=== PATIENT | female | born 1950 | race Caucasian/White ===

== ENCOUNTER 2017-03-16 11:37 | Observation (INO) | payer MEDICARE, BC ==
--- NOTE | 2017-03-16 11:46 | EDM.PDOC ---
ED HPI GENERAL MEDICAL PROBLEM - General Chief Complaint: Cardiovascular Problem Stated Complaint: CAME FROM ACLR Time Seen by Provider: 03/16/17 11:41 Source of Information: Reports: Patient, Old Records, Provider (Essence SHOEMAKER), RN, RN Notes Reviewed History Limitations: Reports: No Limitations - History of Present Illness INITIAL COMMENTS - FREE TEXT/NARRATIVE: Sent to ER from [facility] by Essence SHOEMAKER with report that pt was seen in clinic to establish care today because of Dr. Comer's chcf. Pt was incidentally found to be in A-fib w/RVR w/rate in 150s. Also found to have Mag. of 1.0. Pt has Hx of chronic A-fib but is usually rate controlled. Essence states that pt is a known alcoholic, but denies the severity of her drinking. Also known Hx of A-fib on anticoagulation tx and diltiazem. Hx of chronic hypomagnesemia on oral Mg+. Given the clinic exam/lab findings today, pt's compliance with med. tx is questionable. Pt states that she does not feel her A-fib and cannot tell when it is rapid. She admits to some lightheadedness, and exertional SOB. She has lower ext. edema but states that it is chronic and stable. She denies chest pain, dyspnea at rest, or orthopnea. Onset: Unknown/Unsure Location: Reports: Generalized Severity: Severe Improves with: Reports: None Worsens with: Reports: None Associated Symptoms: Reports: No Other Symptoms - Related Data Allergies Allergy/AdvReac Type Severity Reaction Status Date / Time azithromycin [From Zithromax] Allergy Unknown [facility] Verified 01/23/14 22:05 ciprofloxacin Allergy Unknown UNKNOWN Verified 01/23/14 22:05 Home Meds: Home Meds Aspirin [Dago Chewable Aspirin] 81 mg PO DAILY 11/07/13 [History] Levothyroxine 88 mcg PO DAILY 11/07/13 [History] Acetaminophen [Tylenol] 650 mg PO Q4H PRN #30 tablet 11/13/13 [Rx] Potassium Chloride [Klor-Con 10] 10 meq PO BRK #10 tab.er 11/13/13 [Rx] Amoxicillin/Potassium Clav [Augmentin 500-125 Tablet] 1 tab PO BID 03/16/17 [ History] Atenolol 100 mg PO DAILY 03/16/17 [History] Diltiazem HCl [Cartia Xt] 1 cap PO DAILY 03/16/17 [History] Flecainide Acetate 100 mg PO DAILY 03/16/17 [History] Magnesium Oxide 500 mg PO TID 03/16/17 [History] Metoprolol Succinate [Toprol XL] 1 tab PO DAILY 03/16/17 [History] Rivaroxaban [Xarelto] 20 mg PO DAILY 03/16/17 [History] Past Medical History Cardiovascular History: Reports: Afib, Hypertension, SOB on Exertion Gastrointestinal History: Reports: GERD Psychiatric History: Reports: Addiction (alcohol) Endocrine/Metabolic History: Reports: Hypothyroidism, Other (See Below) ( hypomagnesemia) - Past Surgical History HEENT Surgical History: Reports: Adenoidectomy, Tonsillectomy Cardiovascular Surgical History: Reports: Other (See Below) (Percut. lunchroom monitor) GI Surgical History: Reports: Colonoscopy (w/polyp removal) Social & Family History - Family History Family Medical History: Noncontributory - Tobacco Use Smoking Status *Q: Never Smoker Second Hand Smoke Exposure: No - Alcohol Use Alcohol Use History: Yes Days Per Week of Alcohol Use: 7 Number of Drinks Per Day: 6 Total Drinks Per Week: 42 Alcohol Use Frequency: Daily - Recreational Drug Use Recreational Drug Use: No - Living Situation & Occupation Living situation: Reports: , with Spouse Occupation: Retired ED ROS GENERAL - Review of Systems Review Of Systems: ROS reveals no pertinent complaints other than HPI. ED EXAM, GENERAL - Physical Exam Exam: See Below Exam Limited By: No Limitations General Appearance: Alert, No Apparent Distress, Obese, Other (chronically ill appearing) Eye Exam: Bilateral Eye: Normal Inspection Ears: Normal External Exam, Hearing Grossly Normal Nose: Normal Inspection, Normal Mucosa, No Blood Throat/Mouth: Normal Inspection, Normal Lips, Normal Teeth, Normal Gums, Normal Oropharynx, Normal Voice, No Airway Compromise Head: Atraumatic, Normocephalic Neck: Normal Inspection, Supple, Non-Tender, Full Range of Motion Respiratory/Chest: No Respiratory Distress, Lungs Clear, Normal Breath Sounds, No Accessory Muscle Use, Chest Non-Tender Cardiovascular: No JVD, Tachycardia, Irregularly Irregular GI/Abdominal: Normal Bowel Sounds, Soft, Non-Tender, No Distention, No Abnormal Bruit (Female) Exam: Deferred Rectal (Female) Exam: Deferred Back Exam: Normal Inspection Extremities: Normal Range of Motion, Non-Tender, Normal Capillary Refill, Pedal Edema (B/L lower ext. edema to knees R>L, chronic/stable per pt.) Neurological: Alert, Oriented, CN II-XII Intact, Normal Cognition, No Motor/ Sensory Deficits Psychiatric: Normal Affect, Normal Mood Skin Exam: Warm, Dry, Intact, Normal Color, No Rash EKG INTERPRETATION EKG Date: 03/16/17 Time: 11:59 Rhythm: A-Fib Rate (Beats/Min): 141 [place]: RAD-Right [place] Deviation P-Wave: Absent QRS: Normal ST-T: Normal QT: Normal Comparison: No Change EKG Interpretation Comments: No acute ischemic changes. Course - Vital Signs Last Recorded V/S: Last Vital Signs Temp 36.9 C 03/16/17 11:40 Pulse 110 H 03/16/17 12:13 Resp 18 03/16/17 11:40 BP 138/68 03/16/17 12:13 Pulse Ox 98 03/16/17 11:40 - Orders/Labs/Meds Orders: Active Orders 24 hr Category Date Time Status EKG 12 Lead [EKG Documentation Completion] [RC] STAT Care 03/16/17 11:50 Active Peripheral IV Care [RC] . DIRECTED Care 03/16/17 11:51 Active Chest 1V Frontal [CR] Stat Exams 03/16/17 11:50 Taken CBC WITH AUTO DIFF [HEME] Stat Lab 03/16/17 11:46 Ordered COMPREHENSIVE METABOLIC PN,CMP [CHEM] Stat Lab 03/16/17 11:46 Ordered DRUG SCREEN URINE BIORAD [URCHEM] Stat Lab 03/16/17 11:46 Uncollected DRUG SCREEN URINE BIORAD [URCHEM] Stat Lab 03/16/17 11:51 Uncollected UA W/MICROSCOPIC [URIN] Stat Lab 03/16/17 11:51 Uncollected Diltiazem [Cardizem] 100 mg Med 03/16/17 12:00 Active Sodium Chloride 0.9% [Normal Saline] 100 ml IV TITRATE Magnesium Sulfate/Water [Magnesium Sulfate 4 GM in Med 03/16/17 12:33 Active Water 100 ML] 4 gm Premix Bag 1 bag IV ONETIME Sodium Chloride 0.9% [Saline Flush] Med 03/16/17 11:48 Active 10 ml FLUSH ASDIRECTED PRN Peripheral IV Insertion Adult [OM.PC] Stat Oth 03/16/17 11:49 Ordered Medication Orders Diltiazem HCl 100 mg/ Sodium (Chloride) 100 mls @ 10 mls/hr IV TITRATE ROSEMARY; 10 MG/HR PRN Reason: Protocol Last Admin: 03/16/17 12:13 Dose: 10 mg/hr, 10 mls/hr Magnesium Sulfate 4 gm/ Premix 100 mls @ 200 mls/hr IV ONETIME ONE Stop: 03/16/17 13:02 Sodium Chloride (Saline Flush) 10 ml FLUSH ASDIRECTED PRN PRN Reason: Keep Vein Open Last Admin: 03/16/17 11:46 Dose: 10 ml Labs: Laboratory Tests 03/16/17 03/16/17 03/16/17 Range/Units 12:00 12:00 12:00 WBC 4.8 L (5.0-10.0) 10^3/uL RBC 3.77 L (4.2-5.4) 10^6/uL Hgb 12.6 (12.0-16.0) g/dL Hct 36.5 L (37.0-47.0) % MCV 96.8 D (80-100) fL MCH 33.4 (27.0-34.0) pg MCHC 34.5 (33.0-35.0) g/dL Plt Count 184 D (150-450) 10^3/uL Neut % (Auto) 69.8 (42.2-75.2) % Lymph % (Auto) 17.0 L (20.5-50.1) % [place] % (Auto) 11.4 H (2-8) % Eos % (Auto) 1.2 (1.0-3.0) % Baso % (Auto) 0.6 (0.0-1.0) % Sodium 137 (135-145) mmol/L Potassium 3.3 L (3.6-5.0) mmol/L Chloride 98 L (101-111) mmol/L Carbon Dioxide 26.0 (21.0-31.0) mmol/L Anion Gap 16.3 BUN 8 (7-18) mg/dL Creatinine 0.7 (0.6-1.3) mg/dL Est Cr Clr Drug Dosing 82.62 mL/min Estimated GFR (MDRD) > 60 BUN/Creatinine Ratio 11.42 Glucose 103 (74-105) mg/dL Calcium 9.3 (8.4-10.2) mg/dl Magnesium 1.1 L (1.8-2.5) mg/dL Total Bilirubin 1.9 H (0.2-1.0) mg/dL GGT 139 H (7-64) IU/L AST 54 H (10-42) IU/L ALT 18 (10-60) IU/L Alkaline Phosphatase 148 H (42-121) IU/L Troponin I 0.03 H* (0.00-0.02) ng/ml B-Natriuretic Peptide 325 H (0-100) pg/ml Total Protein 7.8 (6.7-8.2) g/dl Albumin 4.2 (3.2-5.5) g/dl Globulin 3.6 Albumin/Globulin Ratio 1.17 Ethyl Alcohol < 5 mg/dL Meds: Medications Generic Name Dose Route Start Last Admin Trade Name Freq PRN Reason Stop Dose Admin Diltiazem HCl 100 mg/ Sodium 100 mls @ 10 mls/hr 03/16/17 12:00 03/16/17 12: 13 Chloride IV 10 mg/hr TITRATE ROSEMARY 10 mls/hr Protocol Administration 10 MG/HR Magnesium Sulfate 4 gm/ Premix 100 mls @ 200 mls/hr 03/16/17 12:33 IV 03/16/17 13:02 ONETIME ONE Sodium Chloride 10 ml 03/16/17 11:48 03/16/17 11:46 Saline Flush FLUSH 10 ml ASDIRECTED PRN Administration Keep Vein Open Discontinued Medications Generic Name Dose Route Start Last Admin Trade Name Freq PRN Reason Stop Dose Admin Diltiazem HCl 20 mg 03/16/17 11:48 03/16/17 11:56 Diltiazem IVPUSH 03/16/17 11:49 20 mg ONETIME ONE Administration - Radiology Interpretation Free Text/Narrative:: AP CXR: no acute infiltrates, no acute process; see Rad. report. Departure - Departure Time of Disposition: 12:41 (admitted to Dr. Haley) Disposition: Admitted As Inpatient 66 Condition: Serious Clinical Impression: Atrial fibrillation with rapid ventricular response, Hypomagnesemia, Hypokalemia, Alcohol dependence Forms: ED Department Discharge - My Orders Last 24 Hours: My Active Orders 03/16/17 11:46 CBC WITH AUTO DIFF [HEME] Stat COMPREHENSIVE METABOLIC PN,CMP [CHEM] Stat DRUG SCREEN URINE BIORAD [URCHEM] Stat 03/16/17 11:48 Sodium Chloride 0.9% [Saline Flush] 10 ml FLUSH ASDIRECTED PRN 03/16/17 11:49 Peripheral IV Insertion Adult [OM.PC] Stat 03/16/17 11:50 EKG 12 Lead [EKG Documentation Completion] [RC] STAT Chest 1V Frontal [CR] Stat 03/16/17 11:51 Peripheral IV Care [RC] . DIRECTED DRUG SCREEN URINE BIORAD [URCHEM] Stat UA W/MICROSCOPIC [URIN] Stat 03/16/17 12:00 Diltiazem [Cardizem] 100 mg Sodium Chloride 0.9% [Normal Saline] 100 ml IV TITRATE 03/16/17 12:33 Magnesium Sulfate/Water [Magnesium Sulfate 4 GM in Water 100 ML] 4 gm Premix Bag 1 bag IV ONETIME - Assessment/Plan Last 24 Hours: My Active Orders 03/16/17 11:46 CBC WITH AUTO DIFF [HEME] Stat COMPREHENSIVE METABOLIC PN,CMP [CHEM] Stat DRUG SCREEN URINE BIORAD [URCHEM] Stat 03/16/17 11:48 Sodium Chloride 0.9% [Saline Flush] 10 ml FLUSH ASDIRECTED PRN 03/16/17 11:49 Peripheral IV Insertion Adult [OM.PC] Stat 03/16/17 11:50 EKG 12 Lead [EKG Documentation Completion] [RC] STAT Chest 1V Frontal [CR] Stat 03/16/17 11:51 Peripheral IV Care [RC] . DIRECTED DRUG SCREEN URINE BIORAD [URCHEM] Stat UA W/MICROSCOPIC [URIN] Stat 03/16/17 12:00 Diltiazem [Cardizem] 100 mg Sodium Chloride 0.9% [Normal Saline] 100 ml IV TITRATE 03/16/17 12:33 Magnesium Sulfate/Water [Magnesium Sulfate 4 GM in Water 100 ML] 4 gm Premix Bag 1 bag IV ONETIME
[2017-03-16] MEDS ORDERED: Sodium Chloride 0.9% 10 ML Syringe FLUSH PRN ×2 (11:48→13:34)
[2017-03-16] MEDS ORDERED: Diltiazem 25 MG/5 ML SDV IVPUSH ONE (11:48)
[2017-03-16] MEDS ORDERED: Diltiazem 100 MG in Sodium Chloride 0.9% 100 ML IV SCH (12:00)
[2017-03-16 12:29] LABS: ANION GAP 16.3; CHLORIDE,CL 98 mmol/L (101-111); SODIUM,NA 137 mmol/L (135-145)
[2017-03-16] MEDS ORDERED: Magnesium Sulfate/Water 4 GM in Premix Bag 1 BAG IV ONE (12:33)
--- NOTE | 2017-03-16 12:58 | CR ---
Clinical history: 66-year-old "lightheaded" female with atrial fibrillation. Interpretation: Upright AP portable chest film confirms large cardiac silhouette without current sign s of cephalization vascular flow, alveolar edema or dependent pleural fluid accumulation. Fine platelike atelectasis right lung base but no new lung mass, hilar lymphadenopathy or focal lobar pneumonia identified in the interval since 07 November 2013 comparison portable chest film. Atheromatous calcifications arch of the ectatic dorsal aorta. (Reasonable inspiratory effort this obe se female) No lobar collapse. No pneumothorax. CONCLUSION: Large heart. No evidence of acute cardiovascular decompensation, new mass or lobar pneumo gentry.
[2017-03-16] MEDS ORDERED: Zolpidem 5 MG Tab PO PRN (13:34)
[2017-03-16] MEDS ORDERED: Acetaminophen 325 MG Tab PO PRN (13:34)
--- NOTE | 2017-03-16 13:54 | PCM.HP ---
H&P History of Present Illness - General Date of Service: 03/16/17 Admit Problem/Dx: Admission Diagnosis/Problem Admission Diagnosis/Problem Afib, Atrial fibrillation Source of Information: Patient - History of Present Illness Initial Comments - Free Text/Narative: The patient is a 66-year-old lady with a history of atrial fibrillation. The patient went to establish new primary care physician when she was noted to have tachycardia. She has had no definite symptoms. This, maybe slight lightheadedness recently. No associated chest pain, shortness of breath, fever or chills. She denies taking excessive coffeine. She drinks wine with meals and "alcohol free beer". - Related Data Allergies/Adverse Reactions: Allergies Allergy/AdvReac Type Severity Reaction Status Date / Time azithromycin [From Zithromax] Allergy Unknown [place] Verified 01/23/14 22:05 ciprofloxacin Allergy Unknown UNKNOWN Verified 01/23/14 22:05 Home Medications: Home Meds Levothyroxine 88 mcg PO DAILY 11/07/13 [History] Potassium Chloride [Klor-Con 10] 10 meq PO BRK #10 tab.er 11/13/13 [Rx] Amoxicillin/Potassium Clav [Augmentin 500-125 Tablet] 1 tab PO BID 03/16/17 [ History] Diltiazem HCl [Cartia Xt] 1 cap PO DAILY 03/16/17 [History] Flecainide Acetate 100 mg PO DAILY 03/16/17 [History] Magnesium Oxide 500 mg PO TID 03/16/17 [History] Metoprolol Succinate [Toprol XL] 1 tab PO DAILY 03/16/17 [History] Rivaroxaban [Xarelto] 20 mg PO DAILY 03/16/17 [History] Past Medical History Cardiovascular History: Reports: Afib, Hypertension, SOB on Exertion Gastrointestinal History: Reports: GERD Psychiatric History: Reports: Addiction (alcohol) Endocrine/Metabolic History: Reports: Hypothyroidism, Other (See Below) ( hypomagnesemia) - Past Surgical History HEENT Surgical History: Reports: Adenoidectomy, Tonsillectomy Cardiovascular Surgical History: Reports: Other (See Below) (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) GI Surgical History: Reports: Colonoscopy (w/polyp removal) Social & Family History - Family History Family Medical History: Noncontributory - Tobacco Use Smoking Status *Q: Never Smoker Second Hand Smoke Exposure: No - Alcohol Use Days Per Week of Alcohol Use: 7 Number of Drinks Per Day: 6 Total Drinks Per Week: 42 - Recreational Drug Use Recreational Drug Use: No - Living Situation & Occupation Living situation: Reports: , with Spouse Occupation: Retired H&P Review of Systems - Review of Systems: Review Of Systems: See Below General: Denies: Fever Pulmonary: Denies: Shortness of Breath Cardiovascular: Reports: Edema. Denies: Chest Pain Psychiatric: Denies: Confusion Exam - Exam Exam: See Below - Vital Signs Vital Signs: Last Vital Signs Temp 36.9 C 03/16/17 11:40 Pulse 110 H 03/16/17 12:13 Resp 18 03/16/17 11:40 BP 138/68 03/16/17 12:13 Pulse Ox 98 03/16/17 11:40 Weight: 99.337 kg - Exam Quality Assessment: No: Supplemental Oxygen General: Alert, Oriented Neck: Supple Lungs: Clear to Auscultation, Normal Respiratory Effort Cardiovascular: Irregular Rhythm, Tachycardia GI/Abdominal Exam: Normal Bowel Sounds, Soft, Non-Tender Extremities: Pedal Edema Skin: Warm, Dry Neuro Extensive - Mental Status: Alert, Oriented x3, Normal Mood/Affect - Patient Data Lab Results Last 24 hrs: Laboratory Results - last 24 hr 03/16/17 03/16/17 Range/Units 12:43 12:43 Urine Color Yellow (YELLOW) Urine Appearance Cloudy (CLEAR) Urine pH 6.5 (5.0-9.0) Ur Specific [place] 1.015 (1.005-1.030) Urine Protein 100 H (NEGATIVE) Urine Glucose (UA) Negative (NEGATIVE) Urine Ketones Negative (NEGATIVE) Urine Occult Blood Small H (NEGATIVE) Urine Nitrite Negative (NEGATIVE) Urine Bilirubin Small H (NEGATIVE) Urine Urobilinogen 2.0 H (0.2-1.0) mg/dL Ur Leukocyte Esterase Large H (NEGATIVE) Urine RBC 10-20 H /HPF Urine WBC >100 H (0-5/HPF) /HPF Ur Epithelial Cells Many H /HPF Amorphous Sediment Few (0/HPF) /HPF Urine Bacteria Moderate H (0-FEW/HPF) /HPF Urine Mucus Few H /LPF Urine Opiates Screen Negative (NEGATIVE) Ur Oxycodone Screen Negative (NEGATIVE) Urine Methadone Screen Negative (NEGATIVE) Ur Barbiturates Screen Negative (NEGATIVE) U Tricyclic Antidepress Negative (NEGATIVE) Ur Phencyclidine Scrn Negative (NEGATIVE) Ur Amphetamine Screen Negative (NEGATIVE) U Methamphetamines Scrn Negative (NEGATIVE) Urine MDMA Screen Negative (NEGATIVE) U Benzodiazepines Scrn Negative (NEGATIVE) Urine Cocaine Screen Negative (NEGATIVE) U Marijuana (THC) Screen Negative (NEGATIVE) Result Diagrams: 03/16/17 12:00 03/16/17 12:00 EKG INTERPRETATION Rhythm: A-Fib (With rapid ventricular rate) *Q Meaningful Use (ADM) - VTE *Q VTE Criteria *Q: - Stroke *Q Stroke Criteria *Q: - AMI *Q AMI Criteria *Q: - Problem List (1) Alcohol dependence SNOMED Code(s): 22425447 ICD Code: F10.20 - ALCOHOL DEPENDENCE, UNCOMPLICATED Status: Acute Current Visit: Yes (2) Atrial fibrillation with rapid ventricular response SNOMED Code(s): 423335009473971 ICD Code: I48.91 - UNSPECIFIED ATRIAL FIBRILLATION Status: Acute Current Visit: Yes (3) Hypomagnesemia SNOMED Code(s): 383731356 ICD Code: E83.42 - HYPOMAGNESEMIA Status: Acute Current Visit: Yes Problem List Initiated/Reviewed/Updated: Yes Orders Last 24hrs: Active Orders 24 hr Category Date Time Status Patient Status [ADT] Routine ADT 03/16/17 13:34 Ordered Antiembolic Devices [RC] PER UNIT ROUTINE Care 03/16/17 13:37 Ordered Oxygen Therapy [RC] PRN Care 03/16/17 13:34 Ordered Telemetry Monitoring [Cardiac Monitoring] [RC] . Care 03/16/17 13:32 Ordered DIRECTED Up With Assistance [RC] ASDIRECTED Care 03/16/17 13:34 Ordered VTE/DVT Education [RC] PER UNIT ROUTINE Care 03/16/17 13:34 Ordered Vital Signs [RC] Q4H Care 03/16/17 13:34 Ordered Heart Healthy Diet [DIET] Diet 03/16/17 Dinner Ordered BASIC METABOLIC PANEL,BMP [CHEM] AM Lab 03/17/17 05:15 Ordered CBC WITH AUTO DIFF [HEME] AM Lab 03/17/17 05:15 Ordered MAGNESIUM [CHEM] AM Lab 03/17/17 05:11 Ordered PHOSPHORUS [CHEM] AM Lab 03/17/17 05:11 Ordered TROPONIN I [CHEM] Routine Lab 03/16/17 18:00 Ordered Acetaminophen [Tylenol] Med 03/16/17 13:34 Ordered 650 mg PO Q4H PRN Amoxicillin/Clavulanate K [Augmentin 500 MG\\125 MG] Med 03/16/17 21:00 Ordered 1 tab PO BID Diltiazem [Cardizem CD] Med 03/17/17 09:00 Ordered 360 mg PO DAILY Flecainide Acetate [Flecainide Acetate] Med 03/17/17 09:00 Ordered 100 mg PO DAILY Folic Acid Med 03/16/17 13:45 Ordered 1 mg PO DAILY Levothyroxine Med 03/17/17 09:00 Ordered 88 mcg PO DAILY Magnesium Oxide Med 03/16/17 14:00 Ordered 500 mg PO TID Metoprolol Succinate [Toprol XL] Med 03/17/17 09:00 Ordered 1 tab PO DAILY Multivitamins,Therapeutic [Thera] Med 03/16/17 21:00 Ordered 1 each PO BEDTIME Potassium Chloride [Klor-Con 10] Med 03/17/17 08:00 Ordered 10 meq PO BRK Rivaroxaban [Xarelto] Med 03/17/17 09:00 Ordered 20 mg PO DAILY Sodium Chloride 0.9% [Saline Flush] Med 03/16/17 13:34 Ordered 10 ml FLUSH ASDIRECTED PRN Thiamine [Vitamin B-1] Med 03/16/17 21:00 Ordered 100 mg PO BEDTIME Zolpidem [Ambien] Med 03/16/17 13:34 Ordered 5 mg PO BEDTIME PRN Antiembolic Hose [OM.PC] Per Unit Routine Oth 03/16/17 13:36 Ordered Saline Lock Insert [OM.PC] Routine Oth 03/16/17 13:34 Ordered Resuscitation Status Routine Resus Stat 03/16/17 13:34 Ordered Medication Orders Acetaminophen (Tylenol) 650 mg PO Q4H PRN PRN Reason: Pain (Mild 1-3)/fever Amoxicillin/Clavulanate Potassium (Augmentin 500 Mg\\125 Mg) 1 tab PO BIDMEALS ROSEMARY Diltiazem HCl (Cardizem Cd) 360 mg PO DAILY ROSEMARY Folic Acid (Folic Acid) 1 mg PO DAILY ROSEMARY Diltiazem HCl 100 mg/ Sodium (Chloride) 100 mls @ 10 mls/hr IV TITRATE ROSEMARY; 10 MG/HR PRN Reason: Protocol Last Admin: 03/16/17 12:13 Dose: 10 mg/hr, 10 mls/hr Levothyroxine Sodium (Synthroid) 88 mcg PO DAILY@0600 [facility] Magnesium Oxide (Magnesium Oxide) 500 mg PO TID ROSEMARY Metoprolol Succinate (Toprol Xl) 100 mg PO DAILY [facility] Multivitamins (Thera) 1 each PO BEDTIME ROSEMARY Non-Formulary Medication (Flecainide Acetate [Flecainide Acetate]) 100 mg PO DAILY [facility] Potassium Chloride (Klor-Con 10) 10 meq PO BRK ROSEMARY Rivaroxaban (Xarelto) 20 mg PO DAILY [facility] Sodium Chloride (Saline Flush) 10 ml FLUSH ASDIRECTED PRN PRN Reason: Keep Vein Open Last Admin: 03/16/17 11:46 Dose: 10 ml Sodium Chloride (Saline Flush) 10 ml FLUSH ASDIRECTED PRN PRN Reason: Keep Vein Open Thiamine HCl (Vitamin B-1) 100 mg PO BEDTIME ROSEMARY Zolpidem Tartrate (Ambien) 5 mg PO BEDTIME PRN PRN Reason: Sleep Assessment/Plan Comment:: Rapid atrial fibrillation Admitted to telemetry, start Cardizem drip to control heart rate Continue metoprolol, fleccainide Increase Cardizem dose to 240 mg daily Check TSH, continue levothyroxine Hypomagnesemia Was given IV magnesium in the emergency room, recheck in the morning Continue anticoagulation with Xarelto History of alcohol use Give thiamine, folate, multivitamin Chronic Knee infection Continue chronic antibiotic therapy with Augmentin
[2017-03-16] MEDS: Diltiazem 240 MG Cap.CD PO SCH (16:01)
[2017-03-16] MEDS: Metoprolol Succinate 50 MG Tab.ER PO SCH (16:01)
[2017-03-16] MEDS: Folic Acid 1 MG Tab PO SCH (16:01)
[2017-03-16] MEDS: Amoxicillin/Clavulanate K 500-125 MG Tab PO SCH (17:41)
[2017-03-16] MEDS: Potassium Chloride 10 MEQ Tab.ER PO SCH (17:41)
[2017-03-16] MEDS ORDERED: Levothyroxine 88 MCG Tab PO SCH (21:00)
[2017-03-16] MEDS ORDERED: Multivitamins,Therapeutic Tab PO SCH (21:00)
[2017-03-16] MEDS ORDERED: Thiamine 100 MG Tab PO SCH (21:00)
[2017-03-16] MEDS ORDERED: Rivaroxaban 10 MG Tab PO SCH (21:00)
[2017-03-17 07:06] LABS: ANION GAP 15.2; CHLORIDE,CL 98 mmol/L (101-111); SODIUM,NA 136 mmol/L (135-145)
[2017-03-17 07:32] VITALS: BP 110/65
[2017-03-17] MEDS ORDERED: Metoprolol Succinate 50 MG Tab.ER PO SCH (09:00)
[2017-03-17] MEDS ORDERED: Diltiazem 240 MG Cap.CD PO SCH ×2 (09:00)
[2017-03-17] MEDS ORDERED: FLECAINIDE ACETATE 100 MG PO SCH (09:00)
[2017-03-17] MEDS: Diltiazem 240 MG Cap.CD PO SCH (09:12)
[2017-03-17] MEDS: Metoprolol Succinate 50 MG Tab.ER PO SCH (09:13)
[2017-03-17] MEDS: Potassium Chloride 10 MEQ Tab.ER PO SCH (09:13)
[2017-03-17] MEDS: Folic Acid 1 MG Tab PO SCH (09:13)
[2017-03-17] MEDS: Amoxicillin/Clavulanate K 500-125 MG Tab PO SCH (09:14)
[2017-03-17] MEDS ORDERED: Diltiazem 180 MG Cap.CD PO SCH (09:17)
--- NOTE | 2017-03-17 09:29 | PCM.DCSUM1 ---
Discharge Summary - Hospital Course Free Text/Narrative:: The patient was admitted with rapid atrial fibrillation She did not take her morning medications when this was noted Rapid atrial fibrillation Admitted to telemetry, started Cardizem drip to control heart rate Continued metoprolol, Cardizem orally Her rate became controlled and Cardizem drip was stopped She remained in rate controlled atrial fibrillation TSH was normal, continue levothyroxine Will be discharged on her prior home medications Hypomagnesemia Was given IV magnesium in the emergency room, Continue oral supplement Continue anticoagulation with Xarelto History of alcohol use Given thiamine, folate, multivitamin Chronic Knee infection Continue chronic antibiotic therapy with Augmentin - Discharge Data Discharge Date: 03/17/17 Discharge Disposition: Home, Self-Care 01 Condition: Stable - Discharge Diagnosis/Problem(s) (1) Alcohol dependence SNOMED Code(s): 57464547 ICD Code: F10.20 - ALCOHOL DEPENDENCE, UNCOMPLICATED Status: Acute Current Visit: Yes (2) Atrial fibrillation with rapid ventricular response SNOMED Code(s): 542098353369638 ICD Code: I48.91 - UNSPECIFIED ATRIAL FIBRILLATION Status: Acute Current Visit: Yes (3) Hypomagnesemia SNOMED Code(s): 600591541 ICD Code: E83.42 - HYPOMAGNESEMIA Status: Acute Current Visit: Yes - Patient Instructions Diet: Heart Healthy Diet Activity: As Tolerated - Discharge Plan Prescriptions/Med Rec: Potassium Chloride [Klor-Con 10] 10 meq PO BRK #30 tab.er Home Medications: Home Meds Levothyroxine 88 mcg PO BEDTIME 11/07/13 [History] Amoxicillin/Potassium Clav [Augmentin 500-125 Tablet] 1 tab PO BID 03/16/17 [ History] Diltiazem HCl [Cartia Xt] 180 mg PO DAILY 03/16/17 [History] Magnesium Oxide 500 mg PO TID 03/16/17 [History] Metoprolol Succinate [Toprol XL] 100 mg PO DAILY 03/16/17 [History] Rivaroxaban [Xarelto] 20 mg PO BEDTIME 03/16/17 [History] Potassium Chloride [Klor-Con 10] 10 meq PO BRK #30 tab.er 03/17/17 [Rx] Patient Handouts: Muscle Cramps and Spasms, [id number], Potassium Salts tablets, extended-release tablets or capsules, Hypomagnesemia, Hypokalemia, Atrial Fibrillation, [id number] Referrals: PCP,None [Primary Care Provider] - (Lucille Bowers in 3 days) - General Info Date of Service: 03/17/17 Functional Status: Reports: Pain Controlled - Review of Systems General: Denies: Fever, Weakness Pulmonary: Denies: Shortness of Breath Cardiovascular: Denies: Chest Pain, Palpitations Gastrointestinal: Denies: Abdominal Pain - Patient Data Vitals - Most Recent: Last Vital Signs Temp 36.4 C 03/17/17 07:31 Pulse 67 03/17/17 09:13 Resp 20 03/17/17 07:31 BP 110/65 03/17/17 09:13 Pulse Ox 99 03/17/17 07:31 Weight - Most Recent: 99.246 kg I&O - Last 24 hours: Intake & Output 03/16/17 03/17/17 03/17/17 22:59 06:59 14:59 Intake Total 159 510 Output Total 200 100 Balance -41 410 Lab Results - Last 24 hrs: Laboratory Results - last 24 hr 03/16/17 03/17/17 03/17/17 Range/Units 18:02 05:50 05:50 WBC 4.0 L (5.0-10.0) 10^3/uL RBC 3.71 L (4.2-5.4) 10^6/uL Hgb 12.0 (12.0-16.0) g/dL Hct 37.1 (37.0-47.0) % MCV 100.0 D (80-100) fL MCH 32.3 (27.0-34.0) pg MCHC 32.3 L (33.0-35.0) g/dL Plt Count 176 (150-450) 10^3/uL Neut % (Auto) 61.2 (42.2-75.2) % Lymph % (Auto) 22.5 (20.5-50.1) % [place] % (Auto) 13.8 H (2-8) % Eos % (Auto) 1.5 (1.0-3.0) % Baso % (Auto) 1.0 (0.0-1.0) % Sodium 136 (135-145) mmol/L Potassium 4.2 (3.6-5.0) mmol/L Chloride 98 L (101-111) mmol/L Carbon Dioxide 27.0 (21.0-31.0) mmol/L Anion Gap 15.2 BUN 13 (7-18) mg/dL Creatinine 0.8 (0.6-1.3) mg/dL Est Cr Clr Drug Dosing 72.29 mL/min Estimated GFR (MDRD) > 60 Glucose 113 H (74-105) mg/dL Calcium 9.2 (8.4-10.2) mg/dl Phosphorus 4.6 (2.5-4.6) mg/dL Magnesium 1.9 (1.8-2.5) mg/dL Troponin I 0.03 H* (0.00-0.02) ng/ml TSH, Ultra Sensitive (0.45-5.33) uIu/mL 03/17/17 Range/Units 05:50 WBC (5.0-10.0) 10^3/uL RBC (4.2-5.4) 10^6/uL Hgb (12.0-16.0) g/dL Hct (37.0-47.0) % MCV (80-100) fL MCH (27.0-34.0) pg MCHC (33.0-35.0) g/dL Plt Count (150-450) 10^3/uL Neut % (Auto) (42.2-75.2) % Lymph % (Auto) (20.5-50.1) % [place] % (Auto) (2-8) % Eos % (Auto) (1.0-3.0) % Baso % (Auto) (0.0-1.0) % Sodium (135-145) mmol/L Potassium (3.6-5.0) mmol/L Chloride (101-111) mmol/L Carbon Dioxide (21.0-31.0) mmol/L Anion Gap BUN (7-18) mg/dL Creatinine (0.6-1.3) mg/dL Est Cr Clr Drug Dosing mL/min Estimated GFR (MDRD) Glucose (74-105) mg/dL Calcium (8.4-10.2) mg/dl Phosphorus (2.5-4.6) mg/dL Magnesium (1.8-2.5) mg/dL Troponin I (0.00-0.02) ng/ml TSH, Ultra Sensitive 4.45 (0.45-5.33) uIu/mL Med Orders - Current: Current Medications Acetaminophen (Tylenol) 650 mg PO Q4H PRN PRN Reason: Pain (Mild 1-3)/fever Amoxicillin/Clavulanate Potassium (Augmentin 500 Mg\125 Mg) 1 tab PO BIDMEALS COUNT INCLUDES THE [facility] Last Admin: 03/17/17 09:14 Dose: 1 tab Diltiazem HCl (Cardizem Cd) 180 mg PO DAILY COUNT INCLUDES THE [facility] Folic Acid (Folic Acid) 1 mg PO DAILY COUNT INCLUDES THE [facility] Last Admin: 03/17/17 09:13 Dose: 1 mg Levothyroxine Sodium (Synthroid) 88 mcg PO DAILY@2100 COUNT INCLUDES THE [facility] Last Admin: 03/16/17 21:10 Dose: 88 mcg Magnesium Oxide (Magnesium Oxide) 500 mg PO TID COUNT INCLUDES THE [facility] Last Admin: 03/17/17 09:13 Dose: 500 mg Metoprolol Succinate (Toprol Xl) 100 mg PO DAILY COUNT INCLUDES THE [facility] Last Admin: 03/17/17 09:13 Dose: 100 mg Multivitamins (Thera) 1 each PO BEDTIME COUNT INCLUDES THE [facility] Last Admin: 03/16/17 21:10 Dose: 1 each Potassium Chloride (Klor-Con 10) 10 meq PO BRK COUNT INCLUDES THE [facility] Last Admin: 03/17/17 09:13 Dose: 10 meq Rivaroxaban (Xarelto) 20 mg PO DAILY@2100 COUNT INCLUDES THE [facility] Last Admin: 03/16/17 21:10 Dose: 20 mg Sodium Chloride (Saline Flush) 10 ml FLUSH ASDIRECTED PRN PRN Reason: Keep Vein Open Last Admin: 03/16/17 11:46 Dose: 10 ml Sodium Chloride (Saline Flush) 10 ml FLUSH ASDIRECTED PRN PRN Reason: Keep Vein Open Thiamine HCl (Vitamin B-1) 100 mg PO BEDTIME COUNT INCLUDES THE [facility] Last Admin: 03/16/17 21:10 Dose: 100 mg Zolpidem Tartrate (Ambien) 5 mg PO BEDTIME PRN PRN Reason: Sleep Discontinued Medications Diltiazem HCl (Diltiazem) 20 mg IVPUSH ONETIME ONE Stop: 03/16/17 11:49 Last Admin: 03/16/17 11:56 Dose: 20 mg Diltiazem HCl (Cardizem Cd) 360 mg PO DAILY COUNT INCLUDES THE [facility] Diltiazem HCl (Cardizem Cd) 240 mg PO DAILY COUNT INCLUDES THE [facility] Diltiazem HCl (Cardizem Cd) 240 mg PO DAILY ROSEMARY Last Admin: 03/17/17 09:12 Dose: Not Given Diltiazem HCl 100 mg/ Sodium (Chloride) 100 mls @ 10 mls/hr IV TITRATE ROSEMARY; 10 MG/HR PRN Reason: Protocol Last Titration: 03/16/17 18:15 Dose: 0 mg/hr, 0 mls/hr Magnesium Sulfate 4 gm/ Premix 100 mls @ 200 mls/hr IV ONETIME ONE Stop: 03/16/17 13:02 Last Infusion: 03/16/17 20:10 Dose: 50 mls/hr Metoprolol Succinate (Toprol Xl) 100 mg PO DAILY ROSEMARY Non-Formulary Medication (Flecainide Acetate [Flecainide Acetate]) 100 mg PO DAILY ROSEMARY - Exam General: Reports: Alert, Oriented Neck: Reports: Supple Lungs: Reports: Clear to Auscultation, Normal Respiratory Effort Cardiovascular: Reports: Irregular Rhythm. Denies: Bradycardia, Tachycardia GI/Abdominal Exam: Normal Bowel Sounds, Soft, No Mass Extremities: Pedal Edema *Q Meaningful Use (DIS) - VTE *Q VTE Criteria *Q: - Stroke *Q Stroke Criteria *Q: - AMI *Q AMI Criteria *Q:
--- NOTE | 2017-03-22 10:53 | EKG ---
03/16/2017- EVA ARELLANO R - EKG per my reading shows atrial fibrillation with rapid ventricular rate at the rate of 140s. MODL /[id number]
== END 2017-03-17 11:05 | disposition home or self-care (01) ==
LOC: DL.ED 11:37 → DL.MS 12:42 → UNDOADMOB 12:42 → DL.MS 13:34
PROVIDERS: ADMIT Internal Medicine; ATTEND Internal Medicine
DX: I48.2 Chronic atrial fibrillation (principal); E83.42 Hypomagnesemia; F10.20 Alcohol dependence, uncomplicated; R06.02 Shortness of breath; I10 Essential (primary) hypertension; K21.9 Gastro-esophageal reflux disease without esophagitis; E03.9 Hypothyroidism, unspecified; L08.9 Local infection of the skin and subcutaneous tissue, unspecified; Z79.899 Other long term (current) drug therapy; Z79.01 Long term (current) use of anticoagulants; Z88.1 Allergy status to other antibiotic agents; Z90.89 Acquired absence of other organs; Z79.82 Long term (current) use of aspirin
CPT/HCPCS: 36415; 71045; 80048; 80053; 80305; 81001; 82977; 83735; 83880; 84100; 84443; 84484; 85025; 93005; 93010; 96365; 96366; 96368; 96376; 99217; 99218; 99285; A9270; G0378; G0480; J3475; J3490; J7050; 96375

== ENCOUNTER 2018-05-11 07:24 | Inpatient (IN) | payer MEDICARE, BC ==
[2018-05-11] MEDS ORDERED: Diltiazem 25 MG/5 ML SDV IVPUSH ONE (07:41)
--- NOTE | 2018-05-11 07:56 | EDM.PDOC ---
ED HPI GENERAL MEDICAL PROBLEM - General Chief Complaint: Cardiovascular Problem Stated Complaint: AMBULANCE Time Seen by Provider: 05/11/18 07:30 Source of Information: Reports: Patient, EMS, EMS Notes Reviewed, RN, RN Notes Reviewed History Limitations: Reports: No Limitations - History of Present Illness INITIAL COMMENTS - FREE TEXT/NARRATIVE: Pt to ER per [facility] with c/o A fib. She c/o tingling in arms, feeling of palpitations and SOB. Patient states she took her morning pills thinking it would help (Mg, K+, metoprolol). Denies being sick recently. Admits to SOB, nausea, chills, diarrhea for the past few days. Denies chest pain, vomiting, fever. Admits to a fib for quite some time, states her rate normally runs 110- 120. Onset: Today, Gradual - Related Data Allergies Allergy/AdvReac Type Severity Reaction Status Date / Time ciprofloxacin Allergy Severe Swollen Verified 05/11/18 08:56 Tongue azithromycin [From Zithromax] Allergy Intermediate [place] Verified 05/11/18 08: 56 Home Meds: Home Meds Levothyroxine 100 mcg PO BEDTIME 11/07/13 [History] Magnesium Oxide 500 mg PO BID 03/16/17 [History] Metoprolol Succinate [Toprol XL] 150 mg PO DAILY 03/16/17 [History] Rivaroxaban [Xarelto] 20 mg PO BEDTIME 03/16/17 [History] Amoxicillin/Potassium Clav [Amox-Clav 500-125 mg Tablet] 1 each PO BID 05/11/18 [History] Furosemide 40 mg PO DAILY 05/11/18 [History] Potassium Chloride [Klor-Con 10] 10 meq PO BID 05/11/18 [History] Past Medical History Cardiovascular History: Reports: Afib, Hypertension, SOB on Exertion Respiratory History: Reports: SOB Gastrointestinal History: Reports: GERD 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 Musculoskeletal History: Reports: Arthritis, Fracture, Osteoarthritis Neurological History: Reports: TIA Psychiatric History: Reports: Addiction Endocrine/Metabolic History: Reports: Hypothyroidism - Infectious Disease History Infectious Disease History: Reports: Chicken Pox, Measles, Shingles - Past Surgical History HEENT Surgical History: Reports: Adenoidectomy, Tonsillectomy Cardiovascular Surgical History: Reports: Other (See Below) GI Surgical History: Reports: Colonoscopy Female Surgical History: Reports: None Social & Family History - Family History Family Medical History: Noncontributory Musculoskeletal: Reports: Arthritis Endocrine/Metabolic: Reports: Diabetes, type II Oncologic: Reports: Breast - Tobacco Use Smoking Status *Q: Never Smoker Second Hand Smoke Exposure: No - Caffeine Use Caffeine Use: Reports: Coffee, Soda - Recreational Drug Use Recreational Drug Use: No - Living Situation & Occupation Living situation: Reports: , with Spouse Occupation: Retired ED ROS GENERAL - Review of Systems Review Of Systems: ROS reveals no pertinent complaints other than HPI. ED EXAM, GENERAL - Physical Exam Exam: See Below Exam Limited By: No Limitations General Appearance: Alert, WD/WN, No Apparent Distress Eye Exam: Bilateral Eye: EOMI, Normal Inspection Ears: Normal External Exam, Hearing Grossly Normal Nose: Normal Inspection Throat/Mouth: Normal Inspection, Normal Voice, No Airway Compromise Head: Atraumatic, Normocephalic Neck: Normal Inspection, Supple, Non-Tender, Full Range of Motion Respiratory/Chest: Other (lung sounds coarse throughout. ) Cardiovascular: Tachycardia, Irregularly Irregular Peripheral Pulses: 2+: Radial (L), Radial (R) GI/Abdominal: Normal Bowel Sounds, Soft, Non-Tender (Female) Exam: Deferred Rectal (Female) Exam: Deferred Back Exam: Normal Inspection, Full Range of Motion, NT Extremities: Normal Inspection, Normal Range of Motion, Non-Tender, Normal Capillary Refill Neurological: Alert, Oriented, CN II-XII Intact, Normal Cognition, No Motor/ Sensory Deficits Psychiatric: Normal Affect, Normal Mood Skin Exam: Warm, Dry, Intact, Normal Color, No Rash Lymphatic: No Adenopathy EKG INTERPRETATION EKG Date: 05/11/18 Time: 07:38 Rhythm: A-Fib Rate (Beats/Min): 131 Comparison: No Change Course - Vital Signs Last Recorded V/S: Last Vital Signs Temp 98.6 F 05/11/18 07:25 Pulse 147 H 05/11/18 07:25 Resp 18 05/11/18 07:25 BP 142/118 H 05/11/18 07:25 Pulse Ox 98 05/11/18 07:25 - Orders/Labs/Meds Orders: Active Orders 24 hr Category Date Time Status EKG Documentation Completion [RC] STAT Care 05/11/18 07:32 Active Chest 1V Frontal [CR] Stat Exams 05/11/18 07:33 Taken UA RFX PIPE AND CULT IF INDIC [URIN] Stat Lab 05/11/18 07:33 Ordered D5 1/2 NS w/ 20 mEq/L KCl 1,000 ml Med 05/11/18 08:45 Active IV ASDIRECTED Magnesium Sulfate/D5W [Magnesium 1 GM in D5W 100 ML] Med 05/11/18 08:34 Active 100 ml IV ONETIME Sodium Chloride 0.9% [Normal Saline] 1,000 ml Med 05/11/18 08:36 Active IV .BOLUS Medication Orders Potassium Chloride/Dextrose/Sod Cl (D5 1/2 Ns W/ 20 Meq/L Kcl) 1,000 mls @ 75 mls/hr IV ASDIRECTED ROSEMARY Magnesium Sulfate/Dextrose (Magnesium 1 Gm In D5w 100 Ml) 100 mls @ 100 mls/hr IV ONETIME ONE Stop: 05/11/18 09:33 Last Admin: 05/11/18 08:49 Dose: 100 mls/hr Sodium Chloride (Normal Saline) 1,000 mls @ 100 mls/hr IV .BOLUS ONE Stop: 05/11/18 18:35 Last Admin: 05/11/18 08:53 Dose: 100 mls/hr Labs: Laboratory Tests 05/11/18 05/11/18 05/11/18 Range/Units 07:52 07:52 07:52 WBC 3.3 L (5.0-10.0) 10^3/uL RBC 3.28 L (4.2-5.4) 10^6/uL Hgb 12.2 (12.0-16.0) g/dL Hct 34.5 L (37.0-47.0) % MCV 105.2 H D (80-100) fL MCH 37.2 H (27.0-34.0) pg MCHC 35.4 H (33.0-35.0) g/dL Plt Count 103 L (150-450) 10^3/uL Neut % (Auto) 69.0 (42.2-75.2) % Lymph % (Auto) 21.3 (20.5-50.1) % [place] % (Auto) 5.2 (2-8) % Eos % (Auto) 2.7 (1.0-3.0) % Baso % (Auto) 1.8 H (0.0-1.0) % Sodium 129 L (135-145) mmol/L Potassium 3.2 L (3.6-5.0) mmol/L Chloride 86 L D (101-111) mmol/L Carbon Dioxide 25.0 (21.0-31.0) mmol/L Anion Gap 21.2 BUN 6 L (7-18) mg/dL Creatinine 0.7 (0.6-1.3) mg/dL Est Cr Clr Drug Dosing 81.50 mL/min Estimated GFR (MDRD) > 60 BUN/Creatinine Ratio 8.57 Glucose 79 (74-105) mg/dL Calcium 8.7 (8.4-10.2) mg/dl Magnesium 1.2 L (1.8-2.5) mg/dL Total Bilirubin 2.6 H (0.2-1.0) mg/dL AST 156 H (10-42) IU/L ALT 38 (10-60) IU/L Alkaline Phosphatase 142 H (42-121) IU/L Troponin I 0.02 (0.00-0.02) ng/ml Total Protein 7.3 (6.7-8.2) g/dl Albumin 3.9 (3.2-5.5) g/dl Globulin 3.4 Albumin/Globulin Ratio 1.15 Meds: Medications Generic Name Dose Route Start Last Admin Trade Name Freq PRN Reason Stop Dose Admin Potassium Chloride/Dextrose/Sod Cl 1,000 mls @ 75 mls/hr 05/11/18 08:45 D5 1/2 Ns W/ 20 Meq/L Kcl IV ASDIRECTED ROSEMARY Magnesium Sulfate/Dextrose 100 mls @ 100 mls/hr 05/11/18 08:34 05/11/18 08:49 Magnesium 1 Gm In D5w 100 Ml IV 05/11/18 09:33 100 mls/hr ONETIME ONE Administration Sodium Chloride 1,000 mls @ 100 mls/hr 05/11/18 08:36 05/11/18 08:53 Normal Saline IV 05/11/18 18:35 100 mls/hr .BOLUS ONE Administration Discontinued Medications Generic Name Dose Route Start Last Admin Trade Name Freq PRN Reason Stop Dose Admin Diltiazem HCl 20 mg 05/11/18 07:41 05/11/18 07:57 Diltiazem IVPUSH 05/11/18 07:42 20 mg ONETIME ONE Administration - Radiology Interpretation Free Text/Narrative:: Chest xray: FINDINGS: Lungs: No acute lung consolidation or pulmonary edema. Pleural space: No pleural effusion or pneumothorax. Heart/Mediastinum: The heart is enlarged. The mediastinal contours are normal. Bones/joints: No acute osseous abnormality. IMPRESSION: Cardiomegaly. Thank you for allowing us to participate in the care of your patient. Dictated and Authenticated by: John Bliss MD 05/11/2018 8:22 AM Central Time ([place] & [place]) See rad report Departure - Departure Time of Disposition: 09:02 Disposition: Refer to Observation Condition: Fair Clinical Impression: Hypomagnesemia, Hypokalemia, Hyponatremia, Tachycardia Atrial fibrillation Qualifiers: Atrial fibrillation type: chronic Qualified Code(s): I48.2 - Chronic atrial fibrillation Forms: ED Department Discharge - My Orders Last 24 Hours: My Active Orders 05/11/18 07:32 EKG Documentation Completion [RC] STAT 05/11/18 07:33 Chest 1V Frontal [CR] Stat UA RFX PIPE AND CULT IF INDIC [URIN] Stat 05/11/18 08:34 Magnesium Sulfate/D5W [Magnesium 1 GM in D5W 100 ML] 100 ml IV ONETIME 05/11/18 08:36 Sodium Chloride 0.9% [Normal Saline] 1,000 ml IV .BOLUS 05/11/18 08:45 D5 1/2 NS w/ 20 mEq/L KCl 1,000 ml IV ASDIRECTED - Assessment/Plan Last 24 Hours: My Active Orders 05/11/18 07:32 EKG Documentation Completion [RC] STAT 05/11/18 07:33 Chest 1V Frontal [CR] Stat UA RFX PIPE AND CULT IF INDIC [URIN] Stat 05/11/18 08:34 Magnesium Sulfate/D5W [Magnesium 1 GM in D5W 100 ML] 100 ml IV ONETIME 05/11/18 08:36 Sodium Chloride 0.9% [Normal Saline] 1,000 ml IV .BOLUS 05/11/18 08:45 D5 1/2 NS w/ 20 mEq/L KCl 1,000 ml IV ASDIRECTED
[2018-05-11 08:18] LABS: ANION GAP 21.2; CHLORIDE,CL 86 mmol/L (101-111); SODIUM,NA 129 mmol/L (135-145)
[2018-05-11] MEDS ORDERED: Sodium Chloride 0.9% 1,000 ML IV ONE (08:36)
[2018-05-11] MEDS ORDERED: D5 1/2 NS w/ 20 mEq/L KCl 1,000 ML IV SCH (08:45)
[2018-05-11] MEDS ORDERED: Potassium Chloride 20 MEQ in Premix Bag 1 BAG IV ONE (09:58)
[2018-05-11] MEDS ORDERED: ONDANSETRON 4 MG PO PRN (10:53)
[2018-05-11] MEDS ORDERED: Acetaminophen 325 MG Tab PO PRN (11:00)
[2018-05-11] MEDS: NS + KCl 20mEq/L 1,000 ML IV SCH (11:15)
[2018-05-11] MEDS: Potassium Chloride 10 MEQ Tab.ER PO SCH ×2 (12:19→17:58)
--- NOTE | 2018-05-11 18:40 | HP ---
CHIEF COMPLAINT: Palpitations, dizziness, tingling, and numbness to the extremities. HISTORY OF PRESENTING ILLNESS: Mrs. Violeta Abdullahi is a 67-year-old female with medical history significant for hypertension; hyperlipidemia; paroxysmal atrial fibrillation, on chronic anticoagulation with Xarelto; history of hypothyroidism; gastroesophageal reflux disease; duodenitis; gastritis leading to GI bleed in the past; history of alcohol use, presented to the ER with complaints of having dizziness and paresthesias, and noted to have electrolyte imbalance including hyponatremia, severe hypokalemia, hypomagnesemia, requiring admission to the hospital. At this time, the patient claims that she was apparently normal at her baseline function until yesterday. This morning, when she woke up, she had this paresthesias in both extremities and also felt dizzy. She graded the dizziness as 3 to 4/10 in intensity, aggravated on ambulation, relieved with rest, not associated with any nausea or vomiting. Denies any chest pain. No shortness of breath. No abdominal pain. The patient complains of having palpitations earlier today. She denied any fevers or chills in the last few days. No cough with sputum in the last few days. The patient denied any history of chest pains on exertion, but has mild dyspnea on exertion and feels dizzy at times secondary to atrial fibrillation. Denied any hematemesis, hematochezia, or melenic stools recently. Normal bowel and bladder habits otherwise. REVIEW OF SYSTEMS: A complete review of system including skin, ear, nose, and throat, cardiovascular system, respiratory system, gastrointestinal system, genitourinary system, hematology, oncology, neurology, allergy, immunology, endocrinology, constitutional were all evaluated and were negative except for the above-said notes. PAST MEDICAL HISTORY: Significant for hypertension; hyperlipidemia; paroxysmal atrial fibrillation, on chronic anticoagulation; obesity; mitral insufficiency; hypothyroidism; gastroesophageal reflux disease; duodenitis; chronic antral gastritis; bronchitis; alcohol use. PAST SURGICAL HISTORY: Significant for upper endoscopy, total knee arthroplasty on the right side, tonsillectomy, adenoidectomy, polypectomy, loop recorder implant, endometrial biopsy, colonoscopy, transesophageal echocardiography. FAMILY HISTORY: Significant for breast cancer in her mother. Alzheimer disease in her father. Diabetes in her grandmother and grandfather. SOCIAL HISTORY: The patient denied any history of smoking tobacco, history of occasional alcohol intake. ALLERGIES: The patient is noted to have allergies to ciprofloxacin and Zithromax. HOME MEDICATIONS: 1. Ondansetron 4 mg every 4 hours as needed for nausea and vomiting. 2. Ibuprofen as needed for pain. 3. Xarelto 20 mg at bedtime. 4. Potassium chloride 10 mEq daily twice a day. 5. Toprol-XL 150 mg daily. 6. Magnesium oxide 500 mg twice a day. 7. Levothyroxine 100 mcg daily. 8. Lasix 40 mg daily and as needed. 9. Amoxicillin one tablet twice a day. PHYSICAL EXAMINATION: Vital Signs: Temperature of 98.6, pulse of 147, blood pressure 142/118, respiratory rate of 18, and saturating at 98% on room air. General Appearance: The patient is well oriented to time, place, and person. Follows commands spontaneously. Cardiovascular System: S1 and S2 heard with normal intensity. Regular heart rate. Respiratory System: Clear to auscultation bilaterally. No wheeze. No crepitations. Abdomen: Soft. Bowel sounds are positive. Nontender. No rigidity. Extremities: Mild edema in bilateral lower extremities. Neurology: No gross focal neurological deficits. LABORATORY DATA: WBC 3.3, hemoglobin 12.2, hematocrit 34.5, platelet counts 103. Sodium 129, potassium 3.2, chloride 86, bicarb 25, BUN 6, creatinine 0.7, magnesium 1.2, total bilirubin 2.6, AST 156, ALT 138, alkaline phosphatase 142. ASSESSMENT: 1. Acute hyponatremia. 2. Acute hypokalemia. 3. Acute hypomagnesemia. 4. Dizziness. 5. Atrial fibrillation. 6. Hypertension. 7. Hyperlipidemia. 8. History of duodenitis and gastritis. 9. Alcohol use. PLAN: 1. Acute hyponatremia, exact etiology is not clear, but the patient claims that she had some loose stools earlier, unsure this is hypovolemic hyponatremia. We will start her on IV normal saline. We will obtain serum osmolality, urine osmolality, and urine sodium and creatinine to see if the patient has any underlying syndrome of inappropriate antidiuretic hormone secretion like picture. We will keep her hydrated with IV fluids with normal saline and check sodium every 4 hourly. We will closely follow. 2. Hypokalemia. The patient noted a potassium of 3.2. We will mix potassium to the IV bag and also have her on oral potassium chloride. We will have her on 20 mEq three times a day and check a potassium later today and also a BMP in a.m. 3. Hypomagnesium. We will continue with oral supplement and also we will give 1 g of IV magnesium and recheck magnesium in a.m. 4. Dizziness. The patient was complaining of dizziness, this could be resulting from electrolyte imbalance, hyponatremia, and also from atrial fibrillation with rapid ventricular response. We will keep her hydrated with IV fluids. Avoid any hypotensive episodes. 5. Atrial fibrillation. The patient was noted to be in rapid ventricular response. On presentation to the ER, heart rate seems to be improving. We will have her on Telemetry Unit, and we will continue with Toprol-XL for now. Continue Xarelto for anticoagulation. 6. Deep venous thrombosis prophylaxis. She is currently on Xarelto. Continue the same. 7. Code status. The patient wants to be full code. Discussed with [facility], ER staff regarding the plan of care. Discussed with family members at bedside. Reviewed the labs and medications. Reviewed the old charts. [facility] /[id number]
[2018-05-11] MEDS: MAGNESIUM OXIDE 250 MG PO SCH (20:52)
[2018-05-11] MEDS ORDERED: Levothyroxine 100 MCG Tab **OWN MED PO SCH (21:00)
[2018-05-12] MEDS: NS + KCl 20mEq/L 1,000 ML IV SCH (00:49)
[2018-05-12 06:54] LABS: ANION GAP 16.9; CHLORIDE,CL 91 mmol/L (101-111); SODIUM,NA 132 mmol/L (135-145)
[2018-05-12] MEDS: Potassium Chloride 10 MEQ Tab.ER PO SCH ×3 (08:19→17:42)
[2018-05-12] MEDS: MAGNESIUM OXIDE 250 MG PO SCH (08:22)
[2018-05-12] MEDS ORDERED: METOPROLOL SUCCINATE 100 MG PO SCH (09:00)
[2018-05-12] MEDS ORDERED: Ondansetron 4 MG Tab.DIS PO PRN (12:00)
[2018-05-12] MEDS: Diltiazem 120 MG Cap.CD PO SCH (12:31)
[2018-05-12] MEDS: Rivaroxaban 10 MG Tab PO SCH (20:21)
[2018-05-12] MEDS: Sodium Chloride 0.9% 10 ML Syringe FLUSH PRN (20:22)
[2018-05-12] MEDS ORDERED: Levothyroxine 100 MCG Tab PO SCH (21:00)
[2018-05-13] MEDS: Diltiazem 120 MG Cap.CD PO SCH (08:57)
[2018-05-13] MEDS: Potassium Chloride 10 MEQ Tab.ER PO SCH ×3 (08:57→21:32)
[2018-05-13] MEDS ORDERED: Metoprolol Succinate 50 MG Tab.ER PO SCH (09:00)
[2018-05-13 13:05] LABS: ANION GAP 15.2; CHLORIDE,CL 94 mmol/L (101-111); SODIUM,NA 129 mmol/L (135-145)
[2018-05-13] MEDS: Amoxicillin/Clavulanate K 500-125 MG Tab PO SCH ×2 (14:32→21:32)
--- NOTE | 2018-05-13 14:43 | PN ---
DATE: 05/13/2018 SUBJECTIVE: Mrs. Violeta Abdullahi is a 67-year-old female with medical history significant for hypertension; hyperlipidemia; paroxysmal atrial fibrillation, on chronic anticoagulation with Xarelto; hypothyroidism; gastroesophageal reflux disease, admitted to the hospital with weakness, tiredness, and noted to have hyponatremia, severe hypokalemia, hypomagnesemia, atrial fibrillation with rapid ventricular response. For the last 24 hours, the patient closely monitored on Telemetry Unit. She continues to be in atrial fibrillation. We added Cardizem, after which her blood pressure dropped down to 90 systolic. She denies any chest pain. No shortness of breath. No abdominal pain. No nausea. No vomiting. No diarrhea. REVIEW OF SYSTEMS: Cardiovascular, respiratory, gastrointestinal, neurology, constitutional were all evaluated. PHYSICAL EXAMINATION: Vital Signs: Temperature of 97.7, pulse of 55, blood pressure of 95/59, respiratory rate of 18, and saturating at 100% on room air. General Appearance: The patient is well oriented to time, place, and person. Follows commands spontaneously. Cardiovascular System: S1 and S2 heard with normal intensity. Regular heart rate. Respiratory System: Clear to auscultation bilaterally. No wheeze. No crepitations. Abdomen: Soft. Bowel sounds positive. Nontender. No rigidity. Extremities: Mild edema in bilateral lower extremities. MEDICATIONS: Reviewed. 1. Continue with diltiazem 120 mg daily. 2. Decrease Toprol-XL to 100 mg daily. 3. Increase levothyroxine to 150 mcg daily. 4. Continue with potassium chloride 20 mEq three times a day. LABORATORY DATA: Sodium 129, potassium 4.2, chloride 94, bicarb 24, BUN 9, creatinine 0.6, glucose 90. ASSESSMENT: 1. Hyponatremia. 2. Hypokalemia, resolved. 3. Hypomagnesemia, improved. 4. Atrial fibrillation with rapid ventricular response. 5. Hypertension. 6. Hyperlipidemia. 7. Hypothyroidism. 8. Duodenitis. PLAN: 1. Hyponatremia. The patient continues to have low sodium. Her serum osmolality and urine osmolality were obtained, and suggestive of possible syndrome of inappropriate antidiuretic hormone secretion like picture. We will have her on fluid restriction. We will closely follow. 2. Hypokalemia. The patient is on potassium chloride and potassium is much improved. We will change it to twice a day potassium chloride supplement. 3. Hypomagnesium. We will recheck magnesium level in a.m. Continue with magnesium supplement. 4. Atrial fibrillation. The patient's heart rate seems to be much improved. We added Cardizem 120 mg daily, but her blood pressure trended down, so we will decrease the Toprol-XL to 100 mg daily. Continue with Cardizem CD at 120 and we will closely follow. Continue with Xarelto for anticoagulation. 5. Duodenitis. Continue with proton pump inhibitor. 6. Deep venous thrombosis prophylaxis. Continue with heparin for deep venous thrombosis prophylaxis. 7. Closely monitor Telemetry Unit. Discussed with family members regarding the plan of care. [facility] /[id number]
[2018-05-13] MEDS ORDERED: Levothyroxine 75 MCG Tab PO SCH (21:00)
[2018-05-13] MEDS: Rivaroxaban 10 MG Tab PO SCH (21:33)
[2018-05-13] MEDS: Sodium Chloride 0.9% 10 ML Syringe FLUSH PRN (21:35)
[2018-05-14 06:43] LABS: ANION GAP 14.3; CHLORIDE,CL 96 mmol/L (101-111); SODIUM,NA 129 mmol/L (135-145)
[2018-05-14] MEDS: Potassium Chloride 10 MEQ Tab.ER PO SCH (08:36)
[2018-05-14] MEDS: Amoxicillin/Clavulanate K 500-125 MG Tab PO SCH (08:36)
[2018-05-14 08:37] VITALS: BP 123/77
[2018-05-14] MEDS ORDERED: Metoprolol Succinate 50 MG Tab.ER PO SCH (09:00)
[2018-05-14] MEDS ORDERED: Diltiazem 120 MG Cap.CD PO SCH ×2 (09:00)
--- NOTE | 2018-05-14 09:13 | PN ---
DATE: 05/12/2018 SUBJECTIVE: Mrs. Violeta Abdullahi is a 67-year-old female with medical history significant for hypertension; hyperlipidemia; paroxysmal atrial fibrillation, on chronic anticoagulation with Xarelto; hypothyroidism; gastroesophageal reflux disease admitted to the hospital with complaints of increasing dizziness, weakness, tiredness and noted to have atrial fibrillation with rapid ventricular response along with hyponatremia, hypokalemia, and hypomagnesemia. For the last 24 hours, the patient was continued on IV normal saline with potassium chloride and replaced with potassium and magnesium. She continues to have rapid ventricular response with heart rate ranging between 100 to 120 on the telemetry, especially when she is exerting. She denies any ongoing chest pains. No shortness of breath. No abdominal pain. No nausea. No vomiting. No diarrhea. Her weakness seems to be improved after electrolyte replacement. REVIEW OF SYSTEMS: Cardiovascular, respiratory, gastrointestinal, neurology, constitutional were all evaluated. PHYSICAL EXAMINATION: Vital Signs: Temperature of 97.5, pulse of 114, blood pressure 107/79, respiratory rate of 18, and saturating at 99% on room air. General Appearance: The patient is well oriented to time, place, and person. Follows commands spontaneously. Cardiovascular System: S1, S2 heard with normal intensity. No gallops. Respiratory System: Clear to auscultation bilaterally. No wheeze. No crepitations. Abdomen: Soft. Bowel sounds positive. Nontender. No rigidity. Extremities: No edema bilateral lower extremities. MEDICATIONS: Reviewed. 1. Continue with Toprol-XL 150 mg daily. 2. Potassium chloride changed to 20 mEq 3 times a day. 3. Xarelto 20 mg at bedtime. 4. Added diltiazem 120 mg daily. 5. Magnesium oxide 500 mg twice a day. LABORATORY DATA: Reviewed. WBC 2.6, hemoglobin 10.8, hematocrit 31.6, and platelet count 97. Sodium 132, potassium 3.9, chloride 91, bicarb 28, BUN 10, creatinine 0.7, and glucose 84. Magnesium 1.5, phosphorus 3.5, and calcium 8.4. ASSESSMENT: 1. Atrial fibrillation with rapid ventricular response. 2. Dizziness. 3. Hypertension. 4. Hyperlipidemia. 5. Hyponatremia. 6. Hypokalemia. 7. Hypomagnesemia. 8. History of duodenitis and gastritis. PLAN: 1. Atrial fibrillation with rapid ventricular response. The patient is noted to have AFib with RVR. Her heart rate is in the range of 100 to 120. She is on maximal dose of metoprolol-XL at 150 mg daily. Her echocardiogram dated back to 2015 shows evidence of good ejection fraction of 55% to 60%. We will add low-dose Cardizem at 120 mg daily to better control of the heart rate. She will be continued on the Telemetry Unit. We will change her to inpatient at this time as we will need to further dose adjust the medication to optimize her heart rate and electrolytes. 2. Hyponatremia, seems to be improved with IV normal saline. She had serum osmolality and urine osmolality checked. We will discontinue the IV fluids for now. We will recheck a basic metabolic panel in a.m. 3. Hypomagnesemia. If the patient continues to have low magnesium at this time, we will replace with oral magnesium twice a day and we will recheck magnesium in a.m. We will give her 1 more dose of IV magnesium today. 4. Hypokalemia, improved. The patient's potassium is back to normal at 3.9, we will increase the potassium to twice a day and recheck a BMP in a.m. 5. Hypertension. The patient's blood pressure seems to be in acceptable range. She is currently on metoprolol, added Cardizem for better heart rate control. We will closely monitor her to avoid any hypotensive episodes. 6. Chronic anticoagulation indicated secondary to atrial fibrillation. She is currently on Xarelto, continue the same. 7. Hypothyroidism. The patient has been on levothyroxine. Her TSH is greater than 48.6, we will increase the levothyroxine dose to 150 mcg and she would benefit from rechecking a TSH in next 6 weeks of time. 8. The patient will be changed to inpatient service as we would need to further dose adjust the medication to optimize her heart rate and electrolytes. [facility] /[id number]
--- NOTE | 2018-05-15 10:05 | DISCH ---
DATE OF SERVICE: 05/14/2018 ADMITTING DIAGNOSES: 1. Acute hyponatremia. 2. Acute hypokalemia. 3. Acute hypomagnesemia. 4. Atrial fibrillation with rapid ventricular response. 5. Increasing weakness and tiredness. 6. Dizziness. DISCHARGE DIAGNOSES: 1. Acute hyponatremia, most probably from syndrome of inappropriate antidiuretic hormone. The patient recommended for fluid restriction and also from hypothyroidism. 2. Acute hypokalemia, resolved. 3. Acute hypomagnesemia, resolved. 4. Atrial fibrillation with rapid ventricular response, rate controlled after adding diltiazem. 5. Hypertension, improved. 6. Hypothyroidism with elevated thyroid-stimulating hormone level, requiring dose adjustment of her levothyroxine. HISTORY OF PRESENTING ILLNESS: Mrs. Kaylen Mcdaniel is a 67-year-old female with a medical history significant for hypertension, hyperlipidemia, paroxysmal atrial fibrillation, chronic anticoagulation with Xarelto, history of hypothyroidism, gastroesophageal reflux disease, duodenitis, gastritis, admitted to the hospital with complaints of increasing weakness and dizziness and noted to have severe hypokalemia, hypomagnesemia, and atrial fibrillation with rapid ventricular response. The patient was admitted to the Telemetry Unit. She received IV fluids, after which her sodium got improved, but her serum osmolality and urine osmolality suggested possible SIADH and she was noted to have hypothyroidism and her TSH was elevated up to 48 on this admission. We increased her levothyroxine to 150 mcg. She continued to be in atrial fibrillation with a rapid ventricular response. We added diltiazem 120 mg daily after which her heart rate seems to be improved. She was noted to have low blood pressure after adding the diltiazem, so we decreased the metoprolol XL to 100 mg daily. She responded well to the treatment. We replaced her with oral potassium chloride after which her potassium was within normal limits. Her magnesium was within normal limits. She was explained about changes in her medications. She is advised to follow with her primary care physician in next one week of time. She is discharged home in stable condition. DISCHARGE MEDICATIONS: Include: 1. Augmentin 1 tablet twice a day. 2. Diltiazem 120 mg daily. 3. Lasix 40 mg daily and as needed. 4. Ibuprofen 1 tablet at bedtime as needed. 5. Levothyroxine 150 mcg daily. 6. Magnesium oxide 500 mg twice a day. 7. Metoprolol XL 100 mg daily. 8. Ondansetron 4 mg every 4 hours as needed for nausea. 9. Potassium chloride 10 mEq twice a day. 10.Rivaroxaban 20 mg oral at bedtime. PHYSICAL EXAMINATION ON THE DAY OF DISCHARGE: Vital Signs: Temperature of 98.4, pulse of 80, blood pressure of 123/77, respiratory rate of 20, saturating at 99% on room air. General Appearance: The patient is well oriented to time, place, and person. Follows commands spontaneously. Cardiovascular System: S1 and S2 heard with normal intensity. No gallops. Respiratory System: Clear to auscultation bilaterally. No wheeze. No crepitations. Abdomen: Soft. Bowel sounds positive. Nontender. No rigidity. Extremities: Mild edema in bilateral lower extremities. Neurologic: No gross focal neurological deficit. CONDITION ON ADMISSION: Poor. CONDITION ON DISCHARGE: Stable. DISPOSITION: Discharged to home. ACTIVITY: As tolerated. DIET: Cardiac healthy diet with fluid restriction to 1.5 L a day. FOLLOWUP: Follow up with primary care physician in next one week of time. TIME SPENT: I spent over 35 minutes of time in evaluating and treating this patient and planning discharge. [facility] /[id number]
== END 2018-05-14 12:10 | disposition home or self-care (01) | DRG 645 ==
LOC: DL.ED 07:24 → UNDOADMOB 09:26 → DL.MS 09:26 → OBSVTOIN 05-12 11:46
PROVIDERS: ADMIT Internal Medicine; ATTEND Internal Medicine
DX: E22.2 Syndrome of inappropriate secretion of antidiuretic hormone (principal); E87.6 Hypokalemia; E83.42 Hypomagnesemia; R42 Dizziness and giddiness; E03.9 Hypothyroidism, unspecified; I10 Essential (primary) hypertension; I48.0 Paroxysmal atrial fibrillation; K21.9 Gastro-esophageal reflux disease without esophagitis; E66.9 Obesity, unspecified; I34.0 Nonrheumatic mitral (valve) insufficiency; M19.90 Unspecified osteoarthritis, unspecified site; K29.80 Duodenitis without bleeding; E78.5 Hyperlipidemia, unspecified; Z79.01 Long term (current) use of anticoagulants; Z96.651 Presence of right artificial knee joint; Z88.1 Allergy status to other antibiotic agents; Z86.73 Personal history of transient ischemic attack (TIA), and cerebral infarction without residual deficits
CPT/HCPCS: 36415; 71045; 80048; 80053; 81001; 83735; 83930; 83935; 84100; 84132; 84300; 84443; 84484; 85025; 85027; 87086; 87088; 87186; 93005; 96365; 96366; 96367; 96375; 99285-25; A9270-GY; G0378; J3475; J3480; J3490; J7030

== ENCOUNTER 2018-08-02 10:18 | Observation (INO) | payer MEDICARE, BC ==
[2018-08-02] MEDS ORDERED: Sodium Chloride 0.9% 10 ML Syringe FLUSH PRN (10:29)
[2018-08-02 11:12] LABS: CHLORIDE,CL 75 mmol/L (101-111); SODIUM,NA 127 mmol/L (135-145)
[2018-08-02 11:29] LABS: ANION GAP 26.5
[2018-08-02] MEDS ORDERED: D5 1/2 NS w/ 20 mEq/L KCl 1,000 ML IV SCH (12:00)
[2018-08-02] MEDS ORDERED: Magnesium Sulfate/Water 2 GM in Premix Bag 1 BAG IV ONE (13:15)
--- NOTE | 2018-08-02 13:27 | PCM.HP ---
H&P History of Present Illness - General Date of Service: 08/02/18 Admit Problem/Dx: Admission Diagnosis/Problem Admission Diagnosis/Problem Hyponatremia Source of Information: Patient, Provider - History of Present Illness Initial Comments - Free Text/Narative: Patient is a 67 y.o female with medical history significant for afib on chronic anticoagulation with rivaroxiban, CHF, hypothyroidism, and electrolyte imbalance who presented to the ED with complaints of nausea/vomiting, and weakness. Patient reports that she had constant, non-radiating, 5/5, left chest pressure that started last night. Reports pain resolved with taking her morning medications. Reports she had an episode of NBNB emesis this morning. Also reports right flank pain that she thinks was related to her gallstones, for which she has an appointment on August 07. She denies fevers but reports chills. She denies diarrhea, constipation, melena, hematochezia. Reports chronic lower extremity edema. Denies falls. - Related Data Allergies/Adverse Reactions: Allergies Allergy/AdvReac Type Severity Reaction Status Date / Time ciprofloxacin Allergy Severe Swollen Verified 08/02/18 12:27 Tongue azithromycin [From Zithromax] Allergy Intermediate [place] Verified 08/02/18 12: 27 Home Medications: Home Meds Magnesium Oxide 500 mg PO BID 03/16/17 [History] Rivaroxaban [Xarelto] 20 mg PO BEDTIME 03/16/17 [History] Amoxicillin/Potassium Clav [Amox-Clav 500-125 mg Tablet] 1 each PO BID 05/11/18 [History] Furosemide 40 mg PO DAILY 05/11/18 [History] Potassium Chloride [Klor-Con 10] 10 meq PO BID 05/11/18 [History] Diltiazem HCl [Cartia Xt] 120 mg PO DAILY 08/02/18 [History] Levothyroxine 150 mcg PO BEDTIME 08/02/18 [History] Levothyroxine 150 mcg PO QAM 08/02/18 [History] Metoprolol Succinate [Toprol XL 50mg] 50 mg PO BID 08/02/18 [History] Past Medical History HEENT History: Reports: None Cardiovascular History: Reports: Heart Failure, Hypertension, SOB on Exertion Respiratory History: Reports: Sleep Apnea, SOB Gastrointestinal History: Reports: Cholelithiasis, GERD Genitourinary History: Reports: None [employer] History: Reports: Musculoskeletal History: Reports: Arthritis, Osteoarthritis Neurological History: Reports: Seizure, TIA Psychiatric History: Reports: Addiction Endocrine/Metabolic History: Reports: Hypothyroidism - Infectious Disease History Infectious Disease History: Reports: Chicken Pox, Measles 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 - Past Surgical History HEENT Surgical History: Reports: Adenoidectomy, Tonsillectomy Cardiovascular Surgical History: Reports: Other (See Below) Other Cardiovascular Surgeries/Procedures: leaky valve Respiratory Surgical History: Reports: None GI Surgical History: Reports: Colonoscopy Female Surgical History: Reports: None Endocrine Surgical History: Reports: None Neurological Surgical History: Reports: None Musculoskeletal Surgical History: Reports: Knee Replacement, Other (See Below) Other Musculoskeletal Surgeries/Procedures:: right with chronic staph infection Social & Family History - Family History Family Medical History: Noncontributory Musculoskeletal: Reports: Arthritis Endocrine/Metabolic: Reports: Diabetes, type II Oncologic: Reports: Breast - Tobacco Use Smoking Status *Q: Never Smoker Second Hand Smoke Exposure: No - Caffeine Use Caffeine Use: Reports: Coffee - Recreational Drug Use Recreational Drug Use: No - Living Situation & Occupation Living situation: Reports: , with Spouse Occupation: Retired H&P Review of Systems - Review of Systems: Review Of Systems: ROS reveals no pertinent complaints other than HPI. Exam - Exam Exam: See Below - Vital Signs Vital Signs: Last Vital Signs Temp 98.9 F 08/02/18 10:25 Pulse 103 H 08/02/18 10:25 Resp 18 08/02/18 10:25 BP 130/61 08/02/18 10:25 Pulse Ox 97 08/02/18 10:25 Weight: 186 lb 4.8 oz - Exam Physical Exam Comments:: General: Alert and oriented to place, time and person Head: atraumatic and normocephalic. Eyes: PERRLA, EOMI, anicteric, Ear, Nose and Throat: No gross abnormality found Neck: Supple Respiratory/Chest: CTAB, no wheezes, crackles, rales, or rhonci; Good air entry bilaterally. No increased work of breathing CVS: Tachycardic, IRIR, no murmur, rub, or gallop, peripheral pulses palpable. Gastrointestinal/Abd: Soft, non-distended, non-tender. Normal bowel sounds. Skin: No acute rashes noted. Neuro: Grossly non-focal. No cranial nerve abnormality. Moves all extremities. Psych: Alert and oriented to place time and person. No hallucinations or delusions noted. Musculoskeletal: No abnormality noted. Ext: Bilateral ankle edema. No ulcers, no tenderness, no size differences, - Patient Data Lab Results Last 24 hrs: Laboratory Results - last 24 hr 08/02/18 08/02/18 08/02/18 Range/Units 10:43 10:43 10:43 WBC 5.3 (5.0-10.0) 10^3/uL RBC 3.21 L (4.2-5.4) 10^6/uL Hgb 11.7 L (12.0-16.0) g/dL Hct 33.3 L (37.0-47.0) % MCV 103.7 H D (80-100) fL MCH 36.4 H (27.0-34.0) pg MCHC 35.1 H (33.0-35.0) g/dL Plt Count 180 D (150-450) 10^3/uL Neut % (Auto) 80.6 H (42.2-75.2) % Lymph % (Auto) 10.6 L (20.5-50.1) % Addison % (Auto) 8.0 (2-8) % Eos % (Auto) 0.2 L (1.0-3.0) % Baso % (Auto) 0.6 (0.0-1.0) % PT 12.2 H (9.0-12.0) SEC INR 1.2 (0.9-1.2) Sodium 127 L (135-145) mmol/L Potassium 2.5 L D (3.6-5.0) mmol/L Chloride 75 L D (101-111) mmol/L Carbon Dioxide 28.0 (21.0-31.0) mmol/L Anion Gap 26.5 BUN 10 (7-18) mg/dL Creatinine 0.8 (0.6-1.3) mg/dL Est Cr Clr Drug Dosing 71.31 mL/min Estimated GFR (MDRD) > 60 BUN/Creatinine Ratio 12.50 Glucose 104 (74-105) mg/dL Calcium 8.9 (8.4-10.2) mg/dl Magnesium (1.8-2.5) mg/dL Total Bilirubin 3.3 H (0.2-1.0) mg/dL AST 159 H (10-42) IU/L ALT 41 (10-60) IU/L Alkaline Phosphatase 144 H (42-121) IU/L Troponin I 0.02 (0.00-0.02) ng/ml Total Protein 8.1 (6.7-8.2) g/dl Albumin 4.5 (3.2-5.5) g/dl Globulin 3.6 Albumin/Globulin Ratio 1.25 Amylase (28-100) U/L Lipase (22-51) U/L 08/02/18 08/02/18 Range/Units 10:43 10:43 WBC (5.0-10.0) 10^3/uL RBC (4.2-5.4) 10^6/uL Hgb (12.0-16.0) g/dL Hct (37.0-47.0) % MCV (80-100) fL MCH (27.0-34.0) pg MCHC (33.0-35.0) g/dL Plt Count (150-450) 10^3/uL Neut % (Auto) (42.2-75.2) % Lymph % (Auto) (20.5-50.1) % Addison % (Auto) (2-8) % Eos % (Auto) (1.0-3.0) % Baso % (Auto) (0.0-1.0) % PT (9.0-12.0) SEC INR (0.9-1.2) Sodium (135-145) mmol/L Potassium (3.6-5.0) mmol/L Chloride (101-111) mmol/L Carbon Dioxide (21.0-31.0) mmol/L Anion Gap BUN (7-18) mg/dL Creatinine (0.6-1.3) mg/dL Est Cr Clr Drug Dosing mL/min Estimated GFR (MDRD) BUN/Creatinine Ratio Glucose (74-105) mg/dL Calcium (8.4-10.2) mg/dl Magnesium 1.4 L (1.8-2.5) mg/dL Total Bilirubin (0.2-1.0) mg/dL AST (10-42) IU/L ALT (10-60) IU/L Alkaline Phosphatase (42-121) IU/L Troponin I (0.00-0.02) ng/ml Total Protein (6.7-8.2) g/dl Albumin (3.2-5.5) g/dl Globulin Albumin/Globulin Ratio Amylase 44 (28-100) U/L Lipase 19 L (22-51) U/L Result Diagrams: 08/02/18 10:43 08/02/18 10:43 EKG INTERPRETATION EKG Date: 08/02/18 Rhythm: A-Fib Rate (Beats/Min): 126 Plain: RAD-Right Plain Deviation QRS: Normal EKG Interpretation Comments: A fib with RVR, Rate of 126. Right axis deviation. Diffuse T wave inversions. QTc of 516. - Problem List (1) Atrial fibrillation with rapid ventricular response SNOMED Code(s): 351822227019850 ICD Code: I48.91 - UNSPECIFIED ATRIAL FIBRILLATION Status: Acute Current Visit: No (2) Hypokalemia SNOMED Code(s): 50722810 ICD Code: E87.6 - HYPOKALEMIA Status: Acute Current Visit: No (3) Hypomagnesemia SNOMED Code(s): 470646939 ICD Code: E83.42 - HYPOMAGNESEMIA Status: Acute Current Visit: No (4) Hyponatremia SNOMED Code(s): 49726090 ICD Code: E87.1 - HYPO-OSMOLALITY AND HYPONATREMIA Status: Acute Current Visit: No (5) Nausea & vomiting SNOMED Code(s): 47952169 ICD Code: R11.2 - NAUSEA WITH VOMITING, UNSPECIFIED Status: Acute Current Visit: No Qualifiers: Vomiting type: unspecified Vomiting Intractability: non-intractable Qualified Code(s): R11.2 - Nausea with vomiting, unspecified Problem List Initiated/Reviewed/Updated: Yes Orders Last 24hrs: Active Orders 24 hr Category Date Time Status Patient Status [ADT] Routine ADT 08/02/18 13:06 Active EKG Documentation Completion [RC] STAT Care 08/02/18 10:29 Active Oxygen Therapy [RC] PRN Care 08/02/18 13:06 Active Peripheral IV Care [RC] . DIRECTED Care 08/02/18 10:29 Active Telemetry Monitoring [Cardiac Monitoring] [RC] . Care 08/02/18 13:13 Ordered DIRECTED VTE/DVT Education [RC] PER UNIT ROUTINE Care 08/02/18 13:06 Active Vital Signs [RC] Q4H Care 08/02/18 13:06 Active Echo Comp wo Cont [US] Routine Exams 08/02/18 13:16 Ordered CREATININE,URINE RAND [URCHEM] Routine Lab 08/02/18 13:16 Ordered SODIUM,URINE RANDOM [URCHEM] Routine Lab 08/02/18 13:16 Ordered TROPONIN I [CHEM] Routine Lab 08/02/18 14:00 Ordered TSH ULTRASENSITIVE [CHEM] Routine Lab 08/02/18 13:16 Ordered UA RFX PIPE AND CULT IF INDIC [URIN] Stat Lab 08/02/18 10:29 Ordered D5 1/2 NS w/ 20 mEq/L KCl 1,000 ml Med 08/02/18 12:00 Active IV ASDIRECTED Diltiazem [Cardizem CD] Med 08/03/18 09:00 Ordered 120 mg PO DAILY Levothyroxine Med 08/02/18 21:00 Ordered 150 mcg PO BEDTIME Levothyroxine Med 08/03/18 09:00 Ordered 150 mcg PO QAM Magnesium Oxide Med 08/02/18 21:00 Ordered 500 mg PO BID Magnesium Sulfate/Water [Magnesium Sulfate in Water Med 08/02/18 13:15 Ordered Premix] 2 gm Premix Bag 1 bag IV ONETIME Metoprolol Succinate [Toprol XL] Med 08/02/18 21:00 Ordered 50 mg PO BID Potassium Chloride [KCl 10 MEQ in Water 100 ML] 10 meq Med 08/02/18 13:15 Ordered Premix Bag 1 bag IV Q1H Potassium Chloride [Klor-Con 10] Med 08/02/18 13:20 Ordered 40 meq PO BIDMEALS Rivaroxaban [Xarelto] Med 08/02/18 21:00 Ordered 20 mg PO BEDTIME Sodium Chloride 0.9% @ 100 MLS/HR(1,000ml) Med 08/02/18 13:30 Ordered Sodium Chloride 0.9% [Normal Saline] 1,000 ml IV ASDIRECTED Sodium Chloride 0.9% [Saline Flush] Med 08/02/18 10:29 Active 10 ml FLUSH ASDIRECTED PRN Peripheral IV Insertion Adult [OM.PC] Stat Oth 08/02/18 10:29 Ordered Resuscitation Status Routine Resus Stat 08/02/18 13:06 Ordered Medication Orders Potassium Chloride/Dextrose/Sod Cl (D5 1/2 Ns W/ 20 Meq/L Kcl) 1,000 mls @ 125 mls/hr IV ASDIRECTED [facility] Potassium Chloride 10 meq/ (Premix) 100 mls @ 100 mls/hr IV Q1H ROSEMARY Stop: 08/02/18 17:59 Magnesium Sulfate 2 gm/ Premix 50 mls @ 25 mls/hr IV ONETIME ONE Stop: 08/02/18 15:14 Sodium Chloride (Normal Saline) 1,000 mls @ 100 mls/hr IV ASDIRECTED [facility] Potassium Chloride (Klor-Con 10) 40 meq PO BIDMEALS [facility] Sodium Chloride (Saline Flush) 10 ml FLUSH ASDIRECTED PRN PRN Reason: Keep Vein Open Assessment/Plan Comment:: #Hypokalemia: K of 2.5. Likely from GI losses. - Replete with IV and oral KCl. - Monitor and replete K - Tele monitoring #Hypomagnesemia: mild. - IV magnesium sulfate #Hyponatremia: Na of 127. - Obtain urine Na and urine Cr. - Check TSH - NS at 75 ml/hour - Monitor sodium to avoid over correction #A fib with RVR + Chest pain: Rate of 126 on EKG. - Rate is 110 on my exam - Tele monitoring - Resume home meds - Echo ordered but unable to obtain until 08/07 - Trend troponin and EKG #CHF: - Hold lasix DVT PPx: Xarelto GI PPx: Cardiac diet, low sodium. Code status: DNR/DNI
[2018-08-02] MEDS: Potassium Chloride 10 MEQ Tab.ER **PT OWN MED PO SCH ×2 (13:55→18:58)
[2018-08-02] MEDS: Potassium Chloride 10 MEQ in Premix Bag 1 BAG IV SCH ×4 (14:18→18:46)
[2018-08-02] MEDS: Sodium Chloride 0.9% 1,000 ML IV SCH (14:30)
--- NOTE | 2018-08-02 16:21 | EDM.PDOC ---
ED HPI GENERAL MEDICAL PROBLEM - General Chief Complaint: Gastrointestinal Problem Stated Complaint: NAUSEA Time Seen by Provider: 08/02/18 11:10 Source of Information: Reports: Patient, Provider History Limitations: Reports: No Limitations - History of Present Illness INITIAL COMMENTS - FREE TEXT/NARRATIVE: Patient presents to ER per [facility] with complaint of chest pain (left side) felt as if heart beating too hard. Nausea with eating and drinking (began yesterday). Chest pain began early this a.m. Good now. States she feels it was panic. No chills, nausea, vomiting, shortness of breath , cough or dizziness. No fever or diarrhea. She has an appointment in [place] on Monday for gallbladder. Onset: Gradual Duration: Getting Worse Location: Reports: Chest Quality: Reports: Ache Severity: Moderate Improves with: Reports: None Worsens with: Reports: None Associated Symptoms: Reports: No Other Symptoms - Related Data Allergies Allergy/AdvReac Type Severity Reaction Status Date / Time ciprofloxacin Allergy Severe Swollen Verified 08/02/18 12:27 Tongue azithromycin [From Zithromax] Allergy Intermediate [place] Verified 08/02/18 12: 27 Home Meds: Home Meds Magnesium Oxide 500 mg PO BID 03/16/17 [History] Rivaroxaban [Xarelto] 20 mg PO BEDTIME 03/16/17 [History] Amoxicillin/Potassium Clav [Amox-Clav 500-125 mg Tablet] 1 each PO BID 05/11/18 [History] Furosemide 40 mg PO DAILY 05/11/18 [History] Potassium Chloride [Klor-Con 10] 10 meq PO BID 05/11/18 [History] Diltiazem HCl [Cartia Xt] 120 mg PO DAILY 08/02/18 [History] Levothyroxine 150 mcg PO QAM 08/02/18 [History] Metoprolol Succinate [Toprol XL 50mg] 50 mg PO BID 08/02/18 [History] Past Medical History HEENT History: Reports: None Cardiovascular History: Reports: Heart Failure, Hypertension, SOB on Exertion Respiratory History: Reports: Sleep Apnea, SOB Gastrointestinal History: Reports: Cholelithiasis, GERD Genitourinary History: Reports: None [employer] History: Reports: Musculoskeletal History: Reports: Arthritis, Osteoarthritis Neurological History: Reports: Seizure, TIA Psychiatric History: Reports: Addiction Endocrine/Metabolic History: Reports: Hypothyroidism - Infectious Disease History Infectious Disease History: Reports: Chicken Pox, Measles 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 - Past Surgical History HEENT Surgical History: Reports: Adenoidectomy, Tonsillectomy Cardiovascular Surgical History: Reports: Other (See Below) Other Cardiovascular Surgeries/Procedures: leaky valve Respiratory Surgical History: Reports: None GI Surgical History: Reports: Colonoscopy Female Surgical History: Reports: None Endocrine Surgical History: Reports: None Neurological Surgical History: Reports: None Musculoskeletal Surgical History: Reports: Knee Replacement, Other (See Below) Other Musculoskeletal Surgeries/Procedures:: right with chronic staph infection Social & Family History - Family History Family Medical History: Noncontributory Musculoskeletal: Reports: Arthritis Endocrine/Metabolic: Reports: Diabetes, type II Oncologic: Reports: Breast - Tobacco Use Smoking Status *Q: Never Smoker Second Hand Smoke Exposure: No - Caffeine Use Caffeine Use: Reports: Coffee - Recreational Drug Use Recreational Drug Use: No - Living Situation & Occupation Living situation: Reports: , with Spouse Occupation: Retired ED ROS GENERAL - Review of Systems Review Of Systems: ROS reveals no pertinent complaints other than HPI. ED EXAM, GENERAL - Physical Exam Exam: See Below Exam Limited By: No Limitations General Appearance: Alert, WD/WN, No Apparent Distress Eye Exam: Bilateral Eye: EOMI, Normal Inspection, PERRL Ears: Normal External Exam, Normal Canal, Hearing Grossly Normal, Normal TMs Nose: Normal Inspection, Normal Mucosa, No Blood Throat/Mouth: Normal Inspection, Normal Lips, Normal Teeth, Normal Gums, Normal Oropharynx, Normal Voice, No Airway Compromise Head: Atraumatic, Normocephalic Neck: Normal Inspection, Supple, Non-Tender, Full Range of Motion Respiratory/Chest: Wheezing (and crackles bases bilateral) Cardiovascular: Other (irregular A-fib. ) GI/Abdominal: Normal Bowel Sounds, Soft, Non-Tender, No Organomegaly, No Distention, No Abnormal Bruit, No Mass (Female) Exam: Deferred Rectal (Female) Exam: Deferred Back Exam: Normal Inspection, Full Range of Motion, NT Extremities: Normal Inspection, Normal Range of Motion, Non-Tender, Normal Capillary Refill, No Pedal Edema Neurological: Alert, Oriented, CN II-XII Intact, Normal Cognition, Normal Gait, Normal Reflexes, No Motor/Sensory Deficits Psychiatric: Normal Affect, Normal Mood Skin Exam: Warm, Dry, Intact, Normal Color, No Rash Lymphatic: No Adenopathy Course - Vital Signs Last Recorded V/S: Last Vital Signs Temp 97.3 F 08/03/18 08:00 Pulse 73 08/03/18 08:34 Resp 20 08/03/18 08:00 BP 97/59 L 08/03/18 08:34 Pulse Ox 98 08/03/18 08:00 - Orders/Labs/Meds Orders: Active Orders 24 hr Category Date Time Status Peripheral IV Care [RC] ,21 Care 08/02/18 10:29 Active CULTURE URINE [RM] Stat Lab 08/02/18 19:45 Received Sodium Chloride 0.9% [Saline Flush] Med 08/02/18 10:29 Active 10 ml FLUSH ASDIRECTED PRN Peripheral IV Insertion Adult [OM.PC] Stat Oth 08/02/18 10:29 Ordered Medication Orders Amoxicillin/Clavulanate Potassium (Augmentin 500 Mg\125 Mg) 1 tab PO BID [facility] Last Admin: 08/03/18 08:32 Dose: 1 tab Admin: 08/02/18 21:11 Dose: 1 tab Diltiazem HCl (Cardizem Cd) 120 mg PO DAILY [facility] Last Admin: 08/03/18 08:32 Dose: 120 mg Sodium Chloride (Normal Saline) 1,000 mls @ 100 mls/hr IV ASDIRECTED [facility] Last Admin: 08/03/18 01:46 Dose: 100 mls/hr Infusion: 08/03/18 00:30 Dose: 100 mls/hr Admin: 08/02/18 14:30 Dose: 100 mls/hr Levothyroxine Sodium (Synthroid) 200 mcg PO ACBREAKFAST [facility] Last Admin: 08/03/18 05:30 Dose: 200 mcg Magnesium Oxide (Magnesium Oxide) 500 mg PO BID [facility] Last Admin: 08/03/18 08:33 Dose: 500 mg Admin: 08/02/18 21:08 Dose: 500 mg Melatonin (Melatonin) 3 mg PO BEDTIME PRN PRN Reason: Sleep Last Admin: 08/02/18 23:03 Dose: 3 mg Metoprolol Succinate (Toprol Xl) 50 mg PO BID [facility] Last Admin: 08/03/18 08:34 Dose: 50 mg Admin: 08/02/18 21:07 Dose: 50 mg Rivaroxaban [Xarelto ] 20 Mg Pt's Own Med 0 each PO BEDTIME [facility] Last Admin: 08/02/18 21:08 Dose: 1 each Potassium Chloride (Klor-Con 10) 40 meq PO BIDMEALS [facility] Last Admin: 08/03/18 08:33 Dose: 40 meq Admin: 08/02/18 18:58 Dose: 40 meq Admin: 08/02/18 13:55 Dose: 40 meq Sodium Chloride (Saline Flush) 10 ml FLUSH ASDIRECTED PRN PRN Reason: Keep Vein Open Labs: Laboratory Tests 08/02/18 08/02/18 08/02/18 Range/Units 10:43 10:43 10:43 WBC 5.3 (5.0-10.0) 10^3/uL RBC 3.21 L (4.2-5.4) 10^6/uL Hgb 11.7 L (12.0-16.0) g/dL Hct 33.3 L (37.0-47.0) % MCV 103.7 H D (80-100) fL MCH 36.4 H (27.0-34.0) pg MCHC 35.1 H (33.0-35.0) g/dL Plt Count 180 D (150-450) 10^3/uL Neut % (Auto) 80.6 H (42.2-75.2) % Lymph % (Auto) 10.6 L (20.5-50.1) % Cache % (Auto) 8.0 (2-8) % Eos % (Auto) 0.2 L (1.0-3.0) % Baso % (Auto) 0.6 (0.0-1.0) % PT 12.2 H (9.0-12.0) SEC INR 1.2 (0.9-1.2) Sodium 127 L (135-145) mmol/L Potassium 2.5 L D (3.6-5.0) mmol/L Chloride 75 L D (101-111) mmol/L Carbon Dioxide 28.0 (21.0-31.0) mmol/L Anion Gap 26.5 BUN 10 (7-18) mg/dL Creatinine 0.8 (0.6-1.3) mg/dL Est Cr Clr Drug Dosing 71.31 mL/min Estimated GFR (MDRD) > 60 BUN/Creatinine Ratio 12.50 Glucose 104 (74-105) mg/dL Calcium 8.9 (8.4-10.2) mg/dl Magnesium (1.8-2.5) mg/dL Total Bilirubin 3.3 H (0.2-1.0) mg/dL AST 159 H (10-42) IU/L ALT 41 (10-60) IU/L Alkaline Phosphatase 144 H (42-121) IU/L Troponin I 0.02 (0.00-0.02) ng/ml Total Protein 8.1 (6.7-8.2) g/dl Albumin 4.5 (3.2-5.5) g/dl Globulin 3.6 Albumin/Globulin Ratio 1.25 Amylase (28-100) U/L Lipase (22-51) U/L TSH, Ultra Sensitive (0.45-5.33) uIu/mL 08/02/18 08/02/18 08/02/18 Range/Units 10:43 10:43 10:43 WBC (5.0-10.0) 10^3/uL RBC (4.2-5.4) 10^6/uL Hgb (12.0-16.0) g/dL Hct (37.0-47.0) % MCV (80-100) fL MCH (27.0-34.0) pg MCHC (33.0-35.0) g/dL Plt Count (150-450) 10^3/uL Neut % (Auto) (42.2-75.2) % Lymph % (Auto) (20.5-50.1) % Cache % (Auto) (2-8) % Eos % (Auto) (1.0-3.0) % Baso % (Auto) (0.0-1.0) % PT (9.0-12.0) SEC INR (0.9-1.2) Sodium (135-145) mmol/L Potassium (3.6-5.0) mmol/L Chloride (101-111) mmol/L Carbon Dioxide (21.0-31.0) mmol/L Anion Gap BUN (7-18) mg/dL Creatinine (0.6-1.3) mg/dL Est Cr Clr Drug Dosing mL/min Estimated GFR (MDRD) BUN/Creatinine Ratio Glucose (74-105) mg/dL Calcium (8.4-10.2) mg/dl Magnesium 1.4 L (1.8-2.5) mg/dL Total Bilirubin (0.2-1.0) mg/dL AST (10-42) IU/L ALT (10-60) IU/L Alkaline Phosphatase (42-121) IU/L Troponin I (0.00-0.02) ng/ml Total Protein (6.7-8.2) g/dl Albumin (3.2-5.5) g/dl Globulin Albumin/Globulin Ratio Amylase 44 (28-100) U/L Lipase 19 L (22-51) U/L TSH, Ultra Sensitive > 48.60 H (0.45-5.33) uIu/mL Meds: Medications Generic Name Dose Route Start Last Admin Trade Name Freq PRN Reason Stop Dose Admin Amoxicillin/Clavulanate Potassium 1 tab 08/02/18 21:00 08/03/18 08:32 Augmentin 500 Mg\125 Mg PO 1 tab BID [facility] Administration Diltiazem HCl 120 mg 08/03/18 09:00 08/03/18 08:32 Cardizem Cd PO 120 mg DAILY [facility] Administration Sodium Chloride 1,000 mls @ 100 mls/hr 08/02/18 13:30 08/03/18 01:46 Normal Saline IV 100 mls/hr ASDIRECTED [facility] Administration Levothyroxine Sodium 200 mcg 08/03/18 06:00 08/03/18 05:30 Synthroid PO 200 mcg ACBREAKFAST [facility] Administration Magnesium Oxide 500 mg 08/02/18 21:00 08/03/18 08:33 Magnesium Oxide PO 500 mg BID [facility] Administration Melatonin 3 mg 08/02/18 21:41 08/02/18 23:03 Melatonin PO 3 mg BEDTIME PRN Administration Sleep Metoprolol Succinate 50 mg 08/02/18 21:00 08/03/18 08:34 Toprol Xl PO 50 mg BID [facility] Administration Rivaroxaban [Xarelto 0 each 08/02/18 21:00 08/02/18 21:08 ] 20 Mg Pt's Own PO 1 each Med BEDTIME [facility] Administration Potassium Chloride 40 meq 08/02/18 13:20 08/03/18 08:33 Klor-Con 10 PO 40 meq BIDMEALS [facility] Administration Sodium Chloride 10 ml 08/02/18 10:29 Saline Flush FLUSH ASDIRECTED PRN Keep Vein Open Discontinued Medications Generic Name Dose Route Start Last Admin Trade Name Felix PRN Reason Stop Dose Admin Potassium Chloride/Dextrose/Sod Cl 1,000 mls @ 125 mls/hr 08/02/18 12:00 13:25 D5 1/2 Ns W/ 20 Meq/L Kcl IV 125 mls/hr ASDIRECTED [facility] Administration Potassium Chloride 10 meq/ 100 mls @ 100 mls/hr 08/02/18 14:00 08/02/18 20:14 Premix IV 08/02/18 17:59 Infused Q1H [facility] Infusion Magnesium Sulfate 2 gm/ Premix 50 mls @ 25 mls/hr 08/02/18 13:15 08/02/18 13: 52 IV 08/02/18 15:14 25 mls/hr ONETIME ONE Administration Levothyroxine Sodium 150 mcg 08/03/18 06:00 Levothyroxine PO ACBRK [facility] Levothyroxine Sodium 150 mcg 08/03/18 09:00 Levothyroxine PO QAM [facility] - Re-Assessments/Exams Free Text/Narrative Re-Assessment/Exam: 08/03/18 10:18 Discussed patient case with Dr. Dasilva who agreed to accept the patient for observation admission. Departure - Departure Time of Disposition: 12:00 Disposition: Admitted As Inpatient [id number] Condition: Fair Clinical Impression: Hyponatremia, Hypochloremia, Hypokalemia - My Orders Last 24 Hours: My Active Orders 08/02/18 10:29 Peripheral IV Care [RC] 09,21 Sodium Chloride 0.9% [Saline Flush] 10 ml FLUSH ASDIRECTED PRN Peripheral IV Insertion Adult [OM.PC] Stat 08/02/18 19:45 CULTURE URINE [RM] Stat - Assessment/Plan Last 24 Hours: My Active Orders 08/02/18 10:29 Peripheral IV Care [RC] 09,21 Sodium Chloride 0.9% [Saline Flush] 10 ml FLUSH ASDIRECTED PRN Peripheral IV Insertion Adult [OM.PC] Stat 08/02/18 19:45 CULTURE URINE [RM] Stat
[2018-08-02] MEDS: Metoprolol Succinate 50 MG Tab.ER **PT OWN MED PO SCH (21:07)
[2018-08-02] MEDS: MAGNESIUM OXIDE 250 MG PO SCH (21:08)
[2018-08-02] MEDS: RIVAROXABAN 20 MG PO SCH (21:08)
[2018-08-02] MEDS: CLAVULANATE K PO SCH (21:11)
[2018-08-02] MEDS: AMOXICILLIN PO SCH (21:11)
[2018-08-02] MEDS ORDERED: Melatonin 3 MG Tab PO PRN (21:41)
[2018-08-03] MEDS: Sodium Chloride 0.9% 1,000 ML IV SCH ×3 (01:46→21:53)
[2018-08-03] MEDS: Levothyroxine 100 MCG Tab PO SCH (05:30)
[2018-08-03] MEDS ORDERED: LEVOTHYROXINE 150 MCG PO SCH (06:00)
[2018-08-03] MEDS: AMOXICILLIN PO SCH ×2 (08:32→21:52)
[2018-08-03] MEDS: CLAVULANATE K PO SCH ×2 (08:32→21:52)
[2018-08-03] MEDS: MAGNESIUM OXIDE 250 MG PO SCH ×2 (08:33→21:52)
[2018-08-03] MEDS: Potassium Chloride 10 MEQ Tab.ER **PT OWN MED PO SCH ×2 (08:33→17:23)
[2018-08-03] MEDS: Metoprolol Succinate 50 MG Tab.ER **PT OWN MED PO SCH ×2 (08:34→21:54)
[2018-08-03] MEDS ORDERED: DILTIAZEM 120 MG PO SCH (09:00)
[2018-08-03] MEDS ORDERED: Levothyroxine 75 MCG Tab PO SCH (09:00)
[2018-08-03 10:06] LABS: ANION GAP 17.9; CHLORIDE,CL 83 mmol/L (101-111); SODIUM,NA 127 mmol/L (135-145)
--- NOTE | 2018-08-03 10:41 | PCM.PN ---
- General Info Date of Service: 08/03/18 Admission Dx/Problem (Free Text): Admission Diagnosis/Problem Admission Diagnosis/Problem Hyponatremia Subjective Update: No acute events overnight. Reports that she is doing well. States that her legs remain swollen. Denies any f/c, n/v/d/c, no chest pain or shortness of breath. - Review of Systems General: Reports: No Symptoms HEENT: Reports: No Symptoms Pulmonary: Reports: No Symptoms Cardiovascular: Reports: No Symptoms Gastrointestinal: Reports: No Symptoms Genitourinary: Reports: No Symptoms Musculoskeletal: Reports: Joint Swelling Skin: Reports: No Symptoms Neurological: Reports: No Symptoms Psychiatric: Reports: No Symptoms - Patient Data Vitals - Most Recent: Last Vital Signs Temp 97.3 F 08/03/18 08:00 Pulse 73 08/03/18 08:34 Resp 20 08/03/18 08:00 BP 97/59 L 08/03/18 08:34 Pulse Ox 98 08/03/18 08:00 Weight - Most Recent: 193 lb 8 oz I&O - Last 24 Hours: Intake & Output 08/02/18 08/03/18 08/03/18 22:59 06:59 14:59 Intake Total 728 1027 360 Output Total 75 225 Balance 653 802 360 Lab Results Last 24 Hours: Laboratory Results - last 24 hr 08/02/18 08/02/18 08/02/18 Range/Units 10:43 10:43 10:43 WBC 5.3 (5.0-10.0) 10^3/uL RBC 3.21 L (4.2-5.4) 10^6/uL Hgb 11.7 L (12.0-16.0) g/dL Hct 33.3 L (37.0-47.0) % MCV 103.7 H D (80-100) fL MCH 36.4 H (27.0-34.0) pg MCHC 35.1 H (33.0-35.0) g/dL Plt Count 180 D (150-450) 10^3/uL Neut % (Auto) 80.6 H (42.2-75.2) % Lymph % (Auto) 10.6 L (20.5-50.1) % [place] % (Auto) 8.0 (2-8) % Eos % (Auto) 0.2 L (1.0-3.0) % Baso % (Auto) 0.6 (0.0-1.0) % PT 12.2 H (9.0-12.0) SEC INR 1.2 (0.9-1.2) Sodium 127 L (135-145) mmol/L Potassium 2.5 L D (3.6-5.0) mmol/L Chloride 75 L D (101-111) mmol/L Carbon Dioxide 28.0 (21.0-31.0) mmol/L Anion Gap 26.5 BUN 10 (7-18) mg/dL Creatinine 0.8 (0.6-1.3) mg/dL Est Cr Clr Drug Dosing 71.31 mL/min Estimated GFR (MDRD) > 60 BUN/Creatinine Ratio 12.50 Glucose 104 (74-105) mg/dL Calcium 8.9 (8.4-10.2) mg/dl Phosphorus (2.5-4.6) mg/dL Magnesium (1.8-2.5) mg/dL Total Bilirubin 3.3 H (0.2-1.0) mg/dL AST 159 H (10-42) IU/L ALT 41 (10-60) IU/L Alkaline Phosphatase 144 H (42-121) IU/L Troponin I 0.02 (0.00-0.02) ng/ml Total Protein 8.1 (6.7-8.2) g/dl Albumin 4.5 (3.2-5.5) g/dl Globulin 3.6 Albumin/Globulin Ratio 1.25 Amylase (28-100) U/L Lipase (22-51) U/L TSH, Ultra Sensitive (0.45-5.33) uIu/mL Urine Color (YELLOW) Urine Appearance (CLEAR) Urine pH (5.0-9.0) Ur Specific [place] (1.005-1.030) Urine Protein (NEGATIVE) Urine Glucose (UA) (NEGATIVE) Urine Ketones (NEGATIVE) Urine Occult Blood (NEGATIVE) Urine Nitrite (NEGATIVE) Urine Bilirubin (NEGATIVE) Urine Urobilinogen (0.2-1.0) mg/dL Ur Leukocyte Esterase (NEGATIVE) Urine RBC /HPF Urine WBC (0-5/HPF) /HPF Ur Epithelial Cells (NOT SEEN) /HPF Urine Bacteria (0-FEW/HPF) /HPF Urine Other Ur Random Creatinine mg/dL Ur Random Sodium (40-220) mmol/L 08/02/18 08/02/18 08/02/18 Range/Units 10:43 10:43 10:43 WBC (5.0-10.0) 10^3/uL RBC (4.2-5.4) 10^6/uL Hgb (12.0-16.0) g/dL Hct (37.0-47.0) % MCV (80-100) fL MCH (27.0-34.0) pg MCHC (33.0-35.0) g/dL Plt Count (150-450) 10^3/uL Neut % (Auto) (42.2-75.2) % Lymph % (Auto) (20.5-50.1) % [place] % (Auto) (2-8) % Eos % (Auto) (1.0-3.0) % Baso % (Auto) (0.0-1.0) % PT (9.0-12.0) SEC INR (0.9-1.2) Sodium (135-145) mmol/L Potassium (3.6-5.0) mmol/L Chloride (101-111) mmol/L Carbon Dioxide (21.0-31.0) mmol/L Anion Gap BUN (7-18) mg/dL Creatinine (0.6-1.3) mg/dL Est Cr Clr Drug Dosing mL/min Estimated GFR (MDRD) BUN/Creatinine Ratio Glucose (74-105) mg/dL Calcium (8.4-10.2) mg/dl Phosphorus (2.5-4.6) mg/dL Magnesium 1.4 L (1.8-2.5) mg/dL Total Bilirubin (0.2-1.0) mg/dL AST (10-42) IU/L ALT (10-60) IU/L Alkaline Phosphatase (42-121) IU/L Troponin I (0.00-0.02) ng/ml Total Protein (6.7-8.2) g/dl Albumin (3.2-5.5) g/dl Globulin Albumin/Globulin Ratio Amylase 44 (28-100) U/L Lipase 19 L (22-51) U/L TSH, Ultra Sensitive > 48.60 H (0.45-5.33) uIu/mL Urine Color (YELLOW) Urine Appearance (CLEAR) Urine pH (5.0-9.0) Ur Specific [place] (1.005-1.030) Urine Protein (NEGATIVE) Urine Glucose (UA) (NEGATIVE) Urine Ketones (NEGATIVE) Urine Occult Blood (NEGATIVE) Urine Nitrite (NEGATIVE) Urine Bilirubin (NEGATIVE) Urine Urobilinogen (0.2-1.0) mg/dL Ur Leukocyte Esterase (NEGATIVE) Urine RBC /HPF Urine WBC (0-5/HPF) /HPF Ur Epithelial Cells (NOT SEEN) /HPF Urine Bacteria (0-FEW/HPF) /HPF Urine Other Ur Random Creatinine mg/dL Ur Random Sodium (40-220) mmol/L 08/02/18 08/02/18 08/02/18 Range/Units 14:28 19:45 19:45 WBC (5.0-10.0) 10^3/uL RBC (4.2-5.4) 10^6/uL Hgb (12.0-16.0) g/dL Hct (37.0-47.0) % MCV (80-100) fL MCH (27.0-34.0) pg MCHC (33.0-35.0) g/dL Plt Count (150-450) 10^3/uL Neut % (Auto) (42.2-75.2) % Lymph % (Auto) (20.5-50.1) % [place] % (Auto) (2-8) % Eos % (Auto) (1.0-3.0) % Baso % (Auto) (0.0-1.0) % PT (9.0-12.0) SEC INR (0.9-1.2) Sodium (135-145) mmol/L Potassium (3.6-5.0) mmol/L Chloride (101-111) mmol/L Carbon Dioxide (21.0-31.0) mmol/L Anion Gap BUN (7-18) mg/dL Creatinine (0.6-1.3) mg/dL Est Cr Clr Drug Dosing mL/min Estimated GFR (MDRD) BUN/Creatinine Ratio Glucose (74-105) mg/dL Calcium (8.4-10.2) mg/dl Phosphorus (2.5-4.6) mg/dL Magnesium (1.8-2.5) mg/dL Total Bilirubin (0.2-1.0) mg/dL AST (10-42) IU/L ALT (10-60) IU/L Alkaline Phosphatase (42-121) IU/L Troponin I 0.03 H* (0.00-0.02) ng/ml Total Protein (6.7-8.2) g/dl Albumin (3.2-5.5) g/dl Globulin Albumin/Globulin Ratio Amylase (28-100) U/L Lipase (22-51) U/L TSH, Ultra Sensitive (0.45-5.33) uIu/mL Urine Color Anat (YELLOW) Urine Appearance Cloudy (CLEAR) Urine pH 6.0 (5.0-9.0) Ur Specific [place] 1.015 (1.005-1.030) Urine Protein Negative (NEGATIVE) Urine Glucose (UA) Negative (NEGATIVE) Urine Ketones Negative (NEGATIVE) Urine Occult Blood Trace-intact H (NEGATIVE) Urine Nitrite Negative (NEGATIVE) Urine Bilirubin Small H (NEGATIVE) Urine Urobilinogen 2.0 H (0.2-1.0) mg/dL Ur Leukocyte Esterase Small H (NEGATIVE) Urine RBC Not seen /HPF Urine WBC 5-10 H (0-5/HPF) /HPF Ur Epithelial Cells Many H (NOT SEEN) /HPF Urine Bacteria Many H (0-FEW/HPF) /HPF Urine Other See note Ur Random Creatinine 101 mg/dL Ur Random Sodium < 10 L (40-220) mmol/L 08/03/18 Range/Units 09:25 WBC (5.0-10.0) 10^3/uL RBC (4.2-5.4) 10^6/uL Hgb (12.0-16.0) g/dL Hct (37.0-47.0) % MCV (80-100) fL MCH (27.0-34.0) pg MCHC (33.0-35.0) g/dL Plt Count (150-450) 10^3/uL Neut % (Auto) (42.2-75.2) % Lymph % (Auto) (20.5-50.1) % [place] % (Auto) (2-8) % Eos % (Auto) (1.0-3.0) % Baso % (Auto) (0.0-1.0) % PT (9.0-12.0) SEC INR (0.9-1.2) Sodium 127 L (135-145) mmol/L Potassium 3.9 (3.6-5.0) mmol/L Chloride 83 L (101-111) mmol/L Carbon Dioxide 30.0 (21.0-31.0) mmol/L Anion Gap 17.9 BUN 11 (7-18) mg/dL Creatinine 0.7 (0.6-1.3) mg/dL Est Cr Clr Drug Dosing 81.50 mL/min Estimated GFR (MDRD) > 60 BUN/Creatinine Ratio 15.71 Glucose 115 H (74-105) mg/dL Calcium 8.4 (8.4-10.2) mg/dl Phosphorus 2.2 L (2.5-4.6) mg/dL Magnesium 1.9 (1.8-2.5) mg/dL Total Bilirubin (0.2-1.0) mg/dL AST (10-42) IU/L ALT (10-60) IU/L Alkaline Phosphatase (42-121) IU/L Troponin I (0.00-0.02) ng/ml Total Protein (6.7-8.2) g/dl Albumin 3.8 (3.2-5.5) g/dl Globulin Albumin/Globulin Ratio Amylase (28-100) U/L Lipase (22-51) U/L TSH, Ultra Sensitive (0.45-5.33) uIu/mL Urine Color (YELLOW) Urine Appearance (CLEAR) Urine pH (5.0-9.0) Ur Specific [place] (1.005-1.030) Urine Protein (NEGATIVE) Urine Glucose (UA) (NEGATIVE) Urine Ketones (NEGATIVE) Urine Occult Blood (NEGATIVE) Urine Nitrite (NEGATIVE) Urine Bilirubin (NEGATIVE) Urine Urobilinogen (0.2-1.0) mg/dL Ur Leukocyte Esterase (NEGATIVE) Urine RBC /HPF Urine WBC (0-5/HPF) /HPF Ur Epithelial Cells (NOT SEEN) /HPF Urine Bacteria (0-FEW/HPF) /HPF Urine Other Ur Random Creatinine mg/dL Ur Random Sodium (40-220) mmol/L Med Orders - Current: Current Medications Amoxicillin/Clavulanate Potassium (Augmentin 500 Mg\125 Mg) 1 tab PO BID [facility] Last Admin: 08/03/18 08:32 Dose: 1 tab Diltiazem HCl (Cardizem Cd) 120 mg PO DAILY [facility] Last Admin: 08/03/18 08:32 Dose: 120 mg Sodium Chloride (Normal Saline) 1,000 mls @ 100 mls/hr IV ASDIRECTED [facility] Last Admin: 08/03/18 01:46 Dose: 100 mls/hr Levothyroxine Sodium (Synthroid) 200 mcg PO ACBREAKFAST [facility] Last Admin: 08/03/18 05:30 Dose: 200 mcg Magnesium Oxide (Magnesium Oxide) 500 mg PO BID [facility] Last Admin: 08/03/18 08:33 Dose: 500 mg Melatonin (Melatonin) 3 mg PO BEDTIME PRN PRN Reason: Sleep Last Admin: 08/02/18 23:03 Dose: 3 mg Metoprolol Succinate (Toprol Xl) 50 mg PO BID [facility] Last Admin: 08/03/18 08:34 Dose: 50 mg Rivaroxaban [Xarelto ] 20 Mg Pt's Own Med 0 each PO BEDTIME [facility] Last Admin: 08/02/18 21:08 Dose: 1 each Potassium Chloride (Klor-Con 10) 40 meq PO BIDMEALS [facility] Last Admin: 08/03/18 08:33 Dose: 40 meq Sodium Chloride (Saline Flush) 10 ml FLUSH ASDIRECTED PRN PRN Reason: Keep Vein Open Sodium Phosphate (Neutra-Phos) 250 mg PO BID [facility] Stop: 08/03/18 21:01 Discontinued Medications Potassium Chloride/Dextrose/Sod Cl (D5 1/2 Ns W/ 20 Meq/L Kcl) 1,000 mls @ 125 mls/hr IV ASDIRECTED [facility] Last Admin: 08/02/18 13:25 Dose: 125 mls/hr Potassium Chloride 10 meq/ (Premix) 100 mls @ 100 mls/hr IV Q1H [facility] Stop: 08/02/18 17:59 Last Infusion: 08/02/18 20:14 Dose: Infused Magnesium Sulfate 2 gm/ Premix 50 mls @ 25 mls/hr IV ONETIME ONE Stop: 08/02/18 15:14 Last Admin: 08/02/18 13:52 Dose: 25 mls/hr Levothyroxine Sodium (Levothyroxine) 150 mcg PO ACBRK [facility] Levothyroxine Sodium (Levothyroxine) 150 mcg PO QAM [facility] - Exam General: Alert, Oriented HEENT: Pupils Equal, Pupils Reactive, Mucous Membr. Moist/[place] Neck: Supple Lungs: Clear to Auscultation, Normal Respiratory Effort Cardiovascular: Regular Rate, Irregular Rhythm GI/Abdominal Exam: Normal Bowel Sounds, Soft, Non-Tender, No Distention Extremities: Normal Inspection, Normal Range of Motion, Non-Tender, Pedal Edema Skin: Warm, Dry, Intact Neurological: No New Focal Deficit Psy/Mental Status: Alert, Normal Affect, Normal Mood - Problem List & Annotations (1) Atrial fibrillation with rapid ventricular response SNOMED Code(s): 844531027395306 Code(s): I48.91 - UNSPECIFIED ATRIAL FIBRILLATION Status: Acute Current Visit: No (2) Hypokalemia SNOMED Code(s): 00587995 Code(s): E87.6 - HYPOKALEMIA Status: Acute Current Visit: Yes (3) Hypomagnesemia SNOMED Code(s): 173720438 Code(s): E83.42 - HYPOMAGNESEMIA Status: Acute Current Visit: No (4) Hyponatremia SNOMED Code(s): 97321143 Code(s): E87.1 - HYPO-OSMOLALITY AND HYPONATREMIA Status: Acute Current Visit: No (5) Nausea & vomiting SNOMED Code(s): 76104189 Code(s): R11.2 - NAUSEA WITH VOMITING, UNSPECIFIED Status: Acute Current Visit: No Qualifiers: Vomiting type: unspecified Vomiting Intractability: non-intractable Qualified Code(s): R11.2 - Nausea with vomiting, unspecified - Problem List Review Problem List Initiated/Reviewed/Updated: Yes - My Orders Last 24 Hours: My Active Orders 08/02/18 13:06 Patient Status [ADT] Routine Oxygen Therapy [RC] .PRN VTE/DVT Education [RC] PER UNIT ROUTINE Vital Signs [RC] 00,04,08,12,16,20 Resuscitation Status Routine 08/02/18 13:13 Telemetry Monitoring [Cardiac Monitoring] [RC] 09,21 08/02/18 13:20 Potassium Chloride [Klor-Con 10] 40 meq PO BIDMEALS 08/02/18 13:30 Sodium Chloride 0.9% [Normal Saline] 1,000 ml IV ASDIRECTED 08/02/18 21:00 Amoxicillin/Clavulanate K [Augmentin 500 MG\125 MG] 1 tab PO BID Magnesium Oxide 500 mg PO BID Metoprolol Succinate [Toprol XL] 50 mg PO BID Patient's Own Medication [Ptom] 0 each PO BEDTIME 08/02/18 21:41 Melatonin 3 mg PO BEDTIME PRN 08/03/18 06:00 Levothyroxine [Synthroid] 200 mcg PO ACBREAKFAST 08/03/18 09:00 Diltiazem [Cardizem CD] 120 mg PO DAILY 08/03/18 10:35 SODIUM,URINE RANDOM [URCHEM] Routine 08/03/18 10:45 Phosphorus #1 [Neutra-Phos] 250 mg PO BID 08/03/18 Lunch Regular Diet [DIET] 08/07/18 10:00 Echo Comp wo Cont [US] Routine - Plan Plan:: #Hypokalemia: Resolved. K of 3.9 this morning. Presented with K of 2.5. Likely from GI losses. - Monitor and replete K - Tele monitoring #Hypomagnesemia: Resolved. mild. -Monitor and replace electrolytes #Hyponatremia: Na of 127. TSH of 48. - Obtain urine Na and urine Cr. - Check TSH - NS at 75 ml/hour - Monitor sodium to avoid over correction #A fib with RVR + Chest pain: Rate controlled this morning. - Rate of 126 on EKG. - Rate is 110 on my exam - Tele monitoring - Resume home meds - Echo ordered but unable to obtain until 08/07 - Trend troponin and EKG #CHF: - Hold lasix #Hypothyroidism: TSH of 48. Likely non-compliant with medication. - Increased Levothyroxine to 200 mcg from home dose of 150 mcg. DVT PPx: Xarelto GI PPx: Regular diet for now. Code status: DNR/DNI
[2018-08-03] MEDS: Phosphorus #1 250 MG Tab PO SCH ×2 (11:30→21:52)
[2018-08-03] MEDS: RIVAROXABAN 20 MG PO SCH (21:51)
[2018-08-04] MEDS ORDERED: Midodrine 2.5 MG Tab PO ONE (00:06)
[2018-08-04] MEDS ORDERED: Acetaminophen 325 MG Tab PO PRN (00:07)
[2018-08-04] MEDS ORDERED: Sodium Chloride 0.9% 500 ML IV ONE (00:17)
[2018-08-04] MEDS: Sodium Chloride 0.9% 1,000 ML IV SCH (03:02)
[2018-08-04] MEDS ORDERED: Midazolam 1 MG/ML 2 ML SDV IVPUSH ONE (03:10)
[2018-08-04] MEDS ORDERED: Midazolam 1 MG/ML 2 ML SDV ONE (03:12)
--- NOTE | 2018-08-04 03:44 | PCM.DCSUM1 ---
Discharge Summary - Hospital Course Free Text/Narrative:: Patient is a 67 y.o female with medical history significant for afib on chronic anticoagulation with rivaroxiban, CHF, hypothyroidism, and electrolyte imbalance who presented to the ED with complaints of nausea/vomiting, and weakness. Patient reports that she had constant, non-radiating, 5/5, left chest pressure that started last night. Reports pain resolved with taking her morning medications. Reports she had an episode of non-bloody emesis this morning. Also reports right flank pain that she thinks was related to her gallstones, for which she has an appointment on August 07. She denies fevers but reports chills. She denies diarrhea, constipation, melena, hematochezia. Reports chronic lower extremity edema. Denies falls. After admission her potassium corrected with IV potassium and also Magnesium was corrected, Her sodium stayed low at 127 meq/L and was on IV fluids with NS at 125 ml/hr. This night from 11 PM BP was low, held her Metoprolol and gave her NS bolus 500 ml bolus and Midodrine 10 mg X 1 dose but she Brandan down to 25- 34, ER attempted to place External pacer and also started Dopamine drip at 10 mcg/kg, at the time of transfer to [facility] HR was 75-84 bpm. I talk to Dr. Bonilla of Critical care and also Dr. Thornton ( cardiology) about her status and Transfer. Diagnosis: Stroke: No - Discharge Data Discharge Date: 08/04/18 Discharge Disposition: DC/Tfer to Acute Hospital 02 Condition: Critical - Patient Instructions Diet: Regular Diet as Tolerated Activity: As Tolerated - Discharge Plan Home Medications: Home Meds Magnesium Oxide 500 mg PO BID 03/16/17 [History] Rivaroxaban [Xarelto] 20 mg PO BEDTIME 03/16/17 [History] Amoxicillin/Potassium Clav [Amox-Clav 500-125 mg Tablet] 1 each PO BID 05/11/18 [History] Furosemide 40 mg PO DAILY 05/11/18 [History] Potassium Chloride [Klor-Con 10] 10 meq PO BID 05/11/18 [History] Diltiazem HCl [Cartia Xt] 120 mg PO DAILY 08/02/18 [History] Levothyroxine 150 mcg PO QAM 08/02/18 [History] Metoprolol Succinate [Toprol XL 50mg] 50 mg PO BID 08/02/18 [History] Forms: ED Department Discharge Referrals: PCP,None [Primary Care Provider] - - Discharge Summary/Plan Comment DC Time >30 min.: Yes Discharge Summary/Plan Comment: This is a 67 Y/O F with history of A-Fib on anticoagulation , Hypertension, Hypothyroidism, admitted with weakness, diarrhea with Hypotension and Hypokalemia, Hypomagnesemia Impression and Plan: 1. Hypokalemia: Resolved. K of 3.9 this morning. Presented with K of 2.5. Likely from GI losses. - Monitor and replete K as needed - Continue Tele monitoring 2. Hypomagnesemia: Resolved. mild. -Monitor and replace electrolytes 3. Hyponatremia: Na of 127, likely from hypothyroidism, pt had TSH of 48. - She is likely non-compliant with her medication ( Levothyroxine), dose increased from 150 mcg to 200 mcg - Continue NS at 75 ml/hour - Monitor sodium to avoid over correction 4. A fib with RVR + Chest pain: Rate controlled in the morning but over the night she became significantly bradycardic - Rate of 25-34 on Telemetry - Hold Metoprolol ( XL) [was at 50 mg BID] -NS bolus and ER coming to work on transcutaneous pacing -Start Dopamine drip at 10 mcg/kg per minutes - Discussed with C[facility] care and cardiology for transfer to [facility] - Troponin checked on admission was 0.02 and repeat was 0.03 4. CHF: - Hold lasix because of Hypotension 5. Hypothyroidism: TSH of 48. Likely non-compliant with medication. - Increased Levothyroxine to 200 mcg daily from home dose of 150 mcg daily -Follow with PMD after Discharge and recheck TSH Code status: DNR/DNI - General Info Date of Service: 08/04/18 Admission Dx/Problem (Free Text: Admission Diagnosis/Problem Admission Diagnosis/Problem Hyponatremia, Hypokalemia, Hypomagnesemia, Hypotension Subjective Update: Pt stated feeling lightheaded, dizziness and weakness with chest pain, she has no nausea or Vomiting, No myron or chill Functional Status: Reports: Pain Controlled, Urinating, Other (weakness, lightheadedness) - Review of Systems General: Reports: Weakness. Denies: Fever, Chills HEENT: Denies: Headaches, Sinus Congestion, Sore Throat, Visual Changes Cardiovascular: Reports: Chest Pain, Dyspnea on Exertion, Edema (trace), Lightheadedness Gastrointestinal: Reports: Abdominal Pain, Diarrhea. Denies: Nausea, Vomiting Genitourinary: Denies: Dysuria, Urgency, Hematuria, Retention, Flank Pain Musculoskeletal: Denies: Neck Pain, Shoulder Pain, Arm Pain, Hand Pain, Leg Pain , Joint Swelling Skin: Denies: Cyanosis, Jaundice, Bruising, Pruritis, Rash Neurological: Reports: Dizziness, Headache, Weakness. Denies: Confusion, Tingling, Tremors Psychiatric: Denies: Confusion, Hallucinations - Patient Data Vitals - Most Recent: Last Vital Signs Temp 37.1 C 08/03/18 20:00 Pulse 65 08/03/18 21:54 Resp 18 08/03/18 20:00 BP 90/62 08/03/18 21:54 Pulse Ox 98 08/03/18 20:00 Weight - Most Recent: 87.77 kg I&O - Last 24 hours: Intake & Output 08/03/18 08/03/18 08/04/18 14:59 22:59 06:59 Intake Total 1936 240 125 Output Total 300 200 125 Balance 1636 40 0 Lab Results - Last 24 hrs: Laboratory Results - last 24 hr 08/03/18 08/03/18 Range/Units 09:25 15:45 Sodium 127 L (135-145) mmol/L Potassium 3.9 (3.6-5.0) mmol/L Chloride 83 L (101-111) mmol/L Carbon Dioxide 30.0 (21.0-31.0) mmol/L Anion Gap 17.9 BUN 11 (7-18) mg/dL Creatinine 0.7 (0.6-1.3) mg/dL Est Cr Clr Drug Dosing 81.50 mL/min Estimated GFR (MDRD) > 60 BUN/Creatinine Ratio 15.71 Glucose 115 H (74-105) mg/dL Calcium 8.4 (8.4-10.2) mg/dl Phosphorus 2.2 L (2.5-4.6) mg/dL Magnesium 1.9 (1.8-2.5) mg/dL Albumin 3.8 (3.2-5.5) g/dl Ur Random Sodium < 10 L (40-220) mmol/L Med Orders - Current: Current Medications Acetaminophen (Tylenol) 650 mg PO Q6H PRN PRN Reason: Pain Last Admin: 08/04/18 00:35 Dose: 650 mg Amoxicillin/Clavulanate Potassium (Augmentin 500 Mg\125 Mg) 1 tab PO BID [facility] Last Admin: 08/03/18 21:52 Dose: 1 tab Diltiazem HCl (Cardizem Cd) 120 mg PO DAILY [facility] Last Admin: 08/03/18 08:32 Dose: 120 mg Sodium Chloride (Normal Saline) 1,000 mls @ 100 mls/hr IV ASDIRECTED [facility] Last Admin: 08/04/18 03:02 Dose: 100 mls/hr Levothyroxine Sodium (Synthroid) 200 mcg PO ACBREAKFAST [facility] Last Admin: 08/03/18 05:30 Dose: 200 mcg Magnesium Oxide (Magnesium Oxide) 500 mg PO BID [facility] Last Admin: 08/03/18 21:52 Dose: 500 mg Melatonin (Melatonin) 3 mg PO BEDTIME PRN PRN Reason: Sleep Last Admin: 08/02/18 23:03 Dose: 3 mg Metoprolol Succinate (Toprol Xl) 50 mg PO BID [facility] Rivaroxaban [Xarelto ] 20 Mg Pt's Own Med 0 each PO BEDTIME [facility] Last Admin: 08/03/18 21:51 Dose: 1 each Potassium Chloride (Klor-Con 10) 40 meq PO BIDMEALS [facility] Last Admin: 08/03/18 17:23 Dose: 40 meq Sodium Chloride (Saline Flush) 10 ml FLUSH ASDIRECTED PRN PRN Reason: Keep Vein Open Discontinued Medications Potassium Chloride/Dextrose/Sod Cl (D5 1/2 Ns W/ 20 Meq/L Kcl) 1,000 mls @ 125 mls/hr IV ASDIRECTED [facility] Last Admin: 08/02/18 13:25 Dose: 125 mls/hr Potassium Chloride 10 meq/ (Premix) 100 mls @ 100 mls/hr IV Q1H [facility] Stop: 08/02/18 17:59 Last Infusion: 08/02/18 20:14 Dose: Infused Magnesium Sulfate 2 gm/ Premix 50 mls @ 25 mls/hr IV ONETIME ONE Stop: 08/02/18 15:14 Last Admin: 08/02/18 13:52 Dose: 25 mls/hr Sodium Chloride (Normal Saline) 500 mls @ 999 mls/hr IV ONETIME ONE Stop: 08/04/18 00:47 Last Admin: 08/04/18 00:20 Dose: 999 mls/hr Levothyroxine Sodium (Levothyroxine) 150 mcg PO ACBRK [facility] Levothyroxine Sodium (Levothyroxine) 150 mcg PO QAM [facility] Metoprolol Succinate (Toprol Xl) 50 mg PO BID [facility] Last Admin: 08/03/18 21:54 Dose: Not Given Midazolam HCl (Versed 1 Mg/Ml) Confirm Administered Dose 2 mg .ROUTE .STK-MED ONE Stop: 08/04/18 03:13 Midodrine (Midodrine) 10 mg PO ONETIME ONE Stop: 08/04/18 00:07 Last Admin: 08/04/18 00:34 Dose: 10 mg Sodium Phosphate (Neutra-Phos) 250 mg PO BID [facility] Stop: 08/03/18 21:01 Last Admin: 08/03/18 21:52 Dose: 250 mg - Exam Quality Assessment: Reports: Supplemental Oxygen, DVT Prophylaxis General: Reports: Alert, Oriented, Cooperative, No Acute Distress HEENT: Reports: Pupils Equal, Pupils Reactive, Mucous Membr. Moist/[place] Neck: Reports: Supple, No Thyromegaly. Denies: Lymphadenopathy Lungs: Reports: Clear to Auscultation, Normal Respiratory Effort. Denies: Crackles, Wheezing Cardiovascular: Reports: Irregular Rhythm, Bradycardia, Murmurs GI/Abdominal Exam: Normal Bowel Sounds, Soft, Non-Tender, No Distention (Female) Exam: Deferred Back Exam: Reports: Normal Inspection, Full Range of Motion Extremities: Normal Inspection, Pedal Edema (trace) Skin: Reports: Warm, Dry, Intact Neurological: Reports: No New Focal Deficit, Normal Speech, Sensation Intact Psy/Mental Status: Reports: Alert, Normal Affect, Normal Mood
[2018-08-04] MEDS: Levothyroxine 100 MCG Tab PO SCH (07:24)
[2018-08-04 07:35] VITALS: BP 68/51
[2018-08-04] MEDS ORDERED: Metoprolol Succinate 50 MG Tab.ER PO SCH (09:00)
== END 2018-08-04 03:45 ==
LOC: DL.ED 10:18 → DL.MS 11:55 → UNDOADMOB 11:55 → DL.MS 13:06
PROVIDERS: ADMIT Internal Medicine; ATTEND Internal Medicine
DX: E87.1 Hypo-osmolality and hyponatremia (principal); I48.2 Chronic atrial fibrillation; E87.6 Hypokalemia; E83.42 Hypomagnesemia; I11.0 Hypertensive heart disease with heart failure; I50.9 Heart failure, unspecified; E03.9 Hypothyroidism, unspecified; K21.9 Gastro-esophageal reflux disease without esophagitis; G47.30 Sleep apnea, unspecified; Z79.01 Long term (current) use of anticoagulants; Z88.1 Allergy status to other antibiotic agents; Z79.899 Other long term (current) drug therapy
CPT/HCPCS: 36415; 80053; 80069; 81001; 82150; 82570; 83690; 83735; 84300; 84443; 84484; 85025; 85610; 87086; 87088; 87186; 93005; 96361; 96365; 96366; 96368; 96375; 96376; 99285; A4217; A9270; G0378; J2250; J3475; J3480; J7030; J7040

== ENCOUNTER 2018-09-04 14:30 | Emergency (ER) | payer MEDICARE, BC ==
--- NOTE | 2018-09-04 14:49 | EDM.PDOC ---
ED HPI GENERAL MEDICAL PROBLEM - General Chief Complaint: Respiratory Problem Stated Complaint: SOB Time Seen by Provider: 09/04/18 14:49 Source of Information: Reports: Patient, Family, Old Records, RN, RN Notes Reviewed History Limitations: Reports: No Limitations - History of Present Illness INITIAL COMMENTS - FREE TEXT/NARRATIVE: Pt presents to ED via POV with c/o generalized weakness, nausea, and vomiting. Pt states that she has not taken her Lasix in 2 days "because she doesn't want to go to the bathroom all of the time" and is worried about becoming dehydrated. Pt states that she is unable to eat, drink, sleep, or keep any fluids down. Pt states that she doesn't feel good in general. Pt states that she had a pacemaker placed on 08/21/18 and had an ablation the day after. Pt states that she has a headache and rates it at a 6/10. She reports shortness of breath that occurs every few days. Hx of CHF and chronic atrial fibrillation. Denies chest pain, fever, chills, dysuria. Pt reports watery diarrhea that occurs a couple of times a week for about 2 weeks. Denies any bloody, black or melanotic stools. Onset: Gradual Duration: Day(s): (3-4), Constant Location: Reports: Abdomen Quality: Reports: Ache, Other (cramping) Severity: Moderate Improves with: Reports: None Worsens with: Reports: Eating Associated Symptoms: Reports: No Other Symptoms Headache Pain Score (Numeric/FACES): 6 - Related Data Allergies Allergy/AdvReac Type Severity Reaction Status Date / Time ciprofloxacin Allergy Severe Swollen Verified 09/04/18 14:58 Tongue azithromycin [From Zithromax] Allergy Intermediate [place] Verified 09/04/18 14: 58 Home Meds: Home Meds Magnesium Oxide 500 mg PO BID 03/16/17 [History] Rivaroxaban [Xarelto] 20 mg PO BEDTIME 03/16/17 [History] Furosemide 40 mg PO DAILY 05/11/18 [History] Potassium Chloride [Klor-Con 10] 10 meq PO BID 05/11/18 [History] Levothyroxine 150 mcg PO QAM 08/02/18 [History] Metoprolol Succinate [Toprol XL 50mg] 50 mg PO BID 08/02/18 [History] Past Medical History HEENT History: Reports: None Cardiovascular History: Reports: Heart Failure, Hypertension, SOB on Exertion Respiratory History: Reports: Sleep Apnea, SOB Gastrointestinal History: Reports: Cholelithiasis, GERD Genitourinary History: Reports: None [employer] History: Reports: Musculoskeletal History: Reports: Arthritis, Osteoarthritis Neurological History: Reports: Seizure, TIA Psychiatric History: Reports: Addiction Endocrine/Metabolic History: Reports: Hypothyroidism - Infectious Disease History Infectious Disease History: Reports: Chicken Pox, Measles 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 - Past Surgical History HEENT Surgical History: Reports: Adenoidectomy, Tonsillectomy Cardiovascular Surgical History: Reports: Other (See Below) Other Cardiovascular Surgeries/Procedures: leaky valve Respiratory Surgical History: Reports: None GI Surgical History: Reports: Colonoscopy Female Surgical History: Reports: None Endocrine Surgical History: Reports: None Neurological Surgical History: Reports: None Musculoskeletal Surgical History: Reports: Knee Replacement, Other (See Below) Other Musculoskeletal Surgeries/Procedures:: right with chronic staph infection Social & Family History - Family History Family Medical History: Noncontributory Musculoskeletal: Reports: Arthritis Endocrine/Metabolic: Reports: Diabetes, type II Oncologic: Reports: Breast - Caffeine Use Caffeine Use: Reports: Soda - Living Situation & Occupation Living situation: Reports: , with Spouse Occupation: Retired ED ROS GENERAL - Review of Systems Review Of Systems: ROS reveals no pertinent complaints other than HPI. ED EXAM, GENERAL - Physical Exam Exam: See Below Exam Limited By: No Limitations General Appearance: Alert, No Apparent Distress, Other (Chronically ill, non- toxic appearing) Eye Exam: Bilateral Eye: EOMI, PERRL Ears: Normal External Exam, Hearing Grossly Normal Nose: Normal Inspection, Normal Mucosa, No Blood Throat/Mouth: Normal Lips, Normal Teeth, Normal Gums, Normal Oropharynx, Normal Voice, No Airway Compromise, Other (Dry oral membranes) Head: Atraumatic, Normocephalic Neck: Normal Inspection, Supple, Non-Tender, Full Range of Motion, Other (1cm B/ L JVD). No: Lymphadenopathy (L), Lymphadenopathy (R) Respiratory/Chest: No Respiratory Distress, Lungs Clear, No Accessory Muscle Use , Chest Non-Tender, Decreased Breath Sounds Cardiovascular: Regular Rate, Rhythm, Other (+1 pitting edema to B/L lower legs to level of the knees (chronic/stable per pt)) GI/Abdominal: Normal Bowel Sounds, Soft, No Distention, No Abnormal Bruit, Tender (RUQ and periumbilical abdomen). No: Guarding, Rigid, Rebound (Female) Exam: Deferred Rectal (Female) Exam: Deferred Back Exam: Normal Inspection Extremities: Normal Range of Motion, Non-Tender, Pedal Edema. No: Nallely's Sign , Leg Pain Neurological: Alert, Oriented, Normal Cognition, No Motor/Sensory Deficits Psychiatric: Normal Affect, Normal Mood Skin Exam: Warm, Dry, Intact EKG INTERPRETATION EKG Date: 09/04/18 Rhythm: Other (PACED) Rate (Beats/Min): 70 Comparison: Change From Previous EKG Course - Vital Signs Last Recorded V/S: Last Vital Signs Temp 97.1 F 09/04/18 16:09 Pulse 71 09/04/18 16:09 Resp 18 09/04/18 16:09 BP 96/60 09/04/18 16:09 Pulse Ox 94 L 09/04/18 16:09 - Orders/Labs/Meds Orders: Active Orders 24 hr Category Date Time Status Peripheral IV Care [RC] . DIRECTED Care 09/04/18 15:16 Active Chest 1V Frontal [CR] Stat Exams 09/04/18 16:24 Ordered UA RFX PIPE AND CULT IF INDIC [URIN] Stat Lab 09/04/18 15:16 Ordered Heparin Sodium/0.45% NaCl [Heparin 25,000 Units in 1/2 Med 09/04/18 16:30 Ordered NS 500 ML] 25,000 units in 500 ml IV TITRATE Sodium Chloride 0.9% [Saline Flush] Med 09/04/18 15:16 Active 10 ml FLUSH ASDIRECTED PRN Peripheral IV Insertion Adult [OM.PC] Stat Oth 09/04/18 15:16 Ordered Medication Orders Heparin Sodium/Sodium Chloride (Heparin 25,000 Units In 1/2 Ns 500 Ml) 25,000 units in 500 mls @ 21.326 mls/hr IV TITRATE ROSEMARY; Protocol Sodium Chloride (Saline Flush) 10 ml FLUSH ASDIRECTED PRN PRN Reason: Keep Vein Open Last Admin: 09/04/18 15:55 Dose: 10 ml Labs: Laboratory Tests 09/04/18 09/04/18 Range/Units 14:49 14:49 WBC 8.1 (5.0-10.0) 10^3/uL RBC 2.78 L (4.2-5.4) 10^6/uL Hgb 10.3 L (12.0-16.0) g/dL Hct 30.2 L (37.0-47.0) % MCV 108.6 H D (80-100) fL MCH 37.1 H (27.0-34.0) pg MCHC 34.1 (33.0-35.0) g/dL Plt Count 162 (150-450) 10^3/uL Neut % (Auto) 82.7 H (42.2-75.2) % Lymph % (Auto) 8.3 L (20.5-50.1) % Ector % (Auto) 8.9 H (2-8) % Eos % (Auto) 0.0 L (1.0-3.0) % Baso % (Auto) 0.1 (0.0-1.0) % Sodium 125 L (135-145) mmol/L Potassium 3.4 L (3.6-5.0) mmol/L Chloride 83 L (101-111) mmol/L Carbon Dioxide 22.0 (21.0-31.0) mmol/L Anion Gap 23.4 BUN 9 (7-18) mg/dL Creatinine 0.9 (0.6-1.3) mg/dL Est Cr Clr Drug Dosing 53.83 mL/min Estimated GFR (MDRD) > 60 BUN/Creatinine Ratio 10.00 Glucose 133 H (74-105) mg/dL Calcium 8.7 (8.4-10.2) mg/dl Total Bilirubin 3.4 H (0.2-1.0) mg/dL AST 162 H (10-42) IU/L ALT 38 (10-60) IU/L Alkaline Phosphatase 97 (42-121) IU/L Troponin I 0.16 H* (0.00-0.02) ng/ml B-Natriuretic Peptide 1530 H (0-100) pg/ml Total Protein 7.2 (6.7-8.2) g/dl Albumin 3.8 (3.2-5.5) g/dl Globulin 3.4 Albumin/Globulin Ratio 1.12 Amylase 23 L (28-100) U/L Lipase 14 L (22-51) U/L Meds: Medications Generic Name Dose Route Start Last Admin Trade Name Phoenixq PRN Reason Stop Dose Admin Heparin Sodium/Sodium Chloride 25,000 units in 500 mls @ 21.326 mls/hr 16:30 Heparin 25,000 Units In 1/2 Ns 500 Ml IV TITRATE ROSEMARY Protocol 12 UNITS/KG/HR Sodium Chloride 10 ml 09/04/18 15:16 09/04/18 15:55 Saline Flush FLUSH 10 ml ASDIRECTED PRN Administration Keep Vein Open Discontinued Medications Generic Name Dose Route Start Last Admin Trade Name Felix PRN Reason Stop Dose Admin Ondansetron HCl 4 mg 09/04/18 15:16 09/04/18 15:54 Zofran IV 09/04/18 15:17 4 mg ONETIME ONE Administration - Radiology Interpretation Free Text/Narrative:: XR Chest: cardiomegaly, see Rad. report. Departure - Departure Time of Disposition: 16:39 Disposition: DC/Tfer to Acute Hospital 02 Condition: Serious Clinical Impression: Non-STEMI (non-ST elevated myocardial infarction), Chronic hyponatremia Nausea & vomiting Qualifiers: Vomiting type: unspecified Vomiting Intractability: non-intractable Qualified Code(s): R11.2 - Nausea with vomiting, unspecified - Discharge Information *PRESCRIPTION DRUG MONITORING PROGRAM REVIEWED*: No *COPY OF PRESCRIPTION DRUG MONITORING REPORT IN PATIENT MELO: No Referrals: Lucille Bowers PA [Primary Care Provider] - Forms: ED Department Discharge, Interfacility Transfer EMTALA - My Orders Last 24 Hours: My Active Orders 09/04/18 15:16 Peripheral IV Care [RC] . DIRECTED UA RFX PIPE AND CULT IF INDIC [URIN] Stat Sodium Chloride 0.9% [Saline Flush] 10 ml FLUSH ASDIRECTED PRN Peripheral IV Insertion Adult [OM.PC] Stat 09/04/18 16:24 Chest 1V Frontal [CR] Stat 09/04/18 16:30 Heparin Sodium/0.45% NaCl [Heparin 25,000 Units in 1/2 NS 500 ML] 25,000 units in 500 ml IV TITRATE - Assessment/Plan Last 24 Hours: My Active Orders 09/04/18 15:16 Peripheral IV Care [RC] . DIRECTED UA RFX PIPE AND CULT IF INDIC [URIN] Stat Sodium Chloride 0.9% [Saline Flush] 10 ml FLUSH ASDIRECTED PRN Peripheral IV Insertion Adult [OM.PC] Stat 09/04/18 16:24 Chest 1V Frontal [CR] Stat 09/04/18 16:30 Heparin Sodium/0.45% NaCl [Heparin 25,000 Units in 1/2 NS 500 ML] 25,000 units in 500 ml IV TITRATE
[2018-09-04] MEDS ORDERED: Sodium Chloride 0.9% 10 ML Syringe FLUSH PRN (15:16)
[2018-09-04] MEDS ORDERED: Ondansetron 4 MG/2 ML SDV IV ONE ×2 (15:16→17:18)
[2018-09-04 15:34] LABS: ANION GAP 23.4; CHLORIDE,CL 83 mmol/L (101-111); SODIUM,NA 125 mmol/L (135-145)
[2018-09-04 16:11] VITALS: BP 96/60
[2018-09-04] MEDS ORDERED: Heparin Sodium/0.45% NaCl 25,000 UNITS/500 ML BAG IV SCH (16:30)
== END 2018-09-04 17:18 ==
LOC: DL.ED 14:30
DX: I21.4 Non-ST elevation (NSTEMI) myocardial infarction (principal); E87.1 Hypo-osmolality and hyponatremia; R11.2 Nausea with vomiting, unspecified; I11.0 Hypertensive heart disease with heart failure; I50.9 Heart failure, unspecified; Z86.73 Personal history of transient ischemic attack (TIA), and cerebral infarction without residual deficits; M19.90 Unspecified osteoarthritis, unspecified site; E03.9 Hypothyroidism, unspecified; I48.91 Unspecified atrial fibrillation; Z79.899 Other long term (current) drug therapy; Z98.890 Other specified postprocedural states; Z88.1 Allergy status to other antibiotic agents
CPT/HCPCS: 36415; 71045; 80053; 82150; 83690; 83880; 84484; 85025; 96365; 96375; 96376; 99285; J1644; J2405